=== PATIENT | male | born 1975 ===

== ENCOUNTER 2017-06-02 03:03 | Inpatient (IN) ==
--- NOTE | 2017-06-02 03:38 | Emergency Department Note ---
Arrival - Arrival Chief Complaint: Extremity Problem Stated Complaint: Ext Problem ED Nursing Triage Note: Patient to ED via EMS being transferred from [facility] ED for further evaluation for osteomylitits, diabetic ulcer, and multiple foot fx to right foot. Patient reports the ulcer to his right plantar foot has been present since December but the increased pain and swelling has been going on for " 2 months" Patient states he thought it would get better on his own so he did not seek tx. Patient reports no PMH but [facility] ED told patient he was diabetic while he was under their care tonight. Mode of Arrival: Stretcher Time Seen by Provider: 06/02/17 03:35 - History of Present Illness HPI Narrative: This is a 42-year-old male of [place] descent with a history of diabetes and osteomyelitis of the right foot first diagnosed 2 months ago who was seen at another hospital where an x-ray of the right foot reveal hypodensities suggesting osteomyelitis with displaced fractures and erosions for which he was treated with intravenous vancomycin and ertapenem and transferred to the emergency department for admission and possible surgical intervention. The patient denies any fever nor chills. Allergies/Adverse Reactions: Allergies Allergy/AdvReac Type Severity Reaction Status Date / Time No Known Allergies Allergy Unverified 06/02/17 03:20 Home Medications: Home Medications Medication Instructions Recorded Confirmed Type No Known Home Medications [No 06/02/17 06/02/17 History Known Home Medications] Review of System - Review of System Constitutional: Absent: fever, night sweats, weakness Eyes: Absent: vision change Head/Ears/Nose/Throat: Absent: epistaxis, nasal drainage Respiratory: Absent: respiratory distress Cardiovascular: Absent: dyspnea on exertion, orthopnea Gastrointestinal: Absent: diarrhea, constipation Genitourinary female: Absent: dysuria, urgency Musculoskeletal: Absent: lower back pain, neck pain Skin: Absent: change in color, change in hair/nails Neurological: Absent: numbness, paresthesias Psychiatric: Absent: anxiety, depression Endocrine: Absent: heat intolerance, polydipsia Hematological/Lymphatic: Absent: easy bruising, lymphadenopathy Allergic/Immunologic: Absent: urticaria Medical,Surgical,& Family Hx - Medical History Endocrine: History of: Diabetes Mellitus (NIDDM) - Social History Smoking Status: Never smoker Frequency of Alcohol Use: None Type of Drug Use: None Exam Vital Signs: Vital Signs Temperature 99.6 F 06/02/17 03:13 Pulse Rate 94 H 06/02/17 03:13 Respiratory Rate 18 06/02/17 03:13 Blood Pressure 148/84 06/02/17 03:13 O2 Sat by Pulse Oximetry 97 06/02/17 03:13 - Head Head exam: Present: atraumatic, normocephalic - Eye Eye exam: Present: PERRL, EOMI - ENT ENT exam: Present: normal exam, normal oropharynx, mucous membranes dry - Neck Neck exam: Present: normal inspection, full ROM - Chest Chest inspection: Present: normal inspection - Respiratory Respiratory exam: Present: normal lung sounds bilaterally - Cardiovascular Cardiovascular exam: Present: regular rate, normal rhythm - Abdominal Exam Abdominal exam: Present: soft, normal bowel sounds - Extremities Exam Extremities exam: Present: other (The right foot has an ulceration on the plantar surface with warmth swelling and erythema) - Back Exam Back exam: Present: normal inspection, full ROM - Neurological Exam Neurological exam: Present: alert, oriented X3 - Psychiatric Psychiatric exam: Present: normal affect, normal mood - Skin Skin exam: Present: warm, dry
--- NOTE | 2017-06-02 04:13 | Hospitalist History & Physical ---
Assessment and Plan (1) Cellulitis Status: Acute Current Visit: Yes (2) Diabetic foot wound Status: Acute Current Visit: Yes (3) Osteomyelitis Status: Acute Current Visit: Yes (4) Diabetes Status: Acute Current Visit: Yes (5) Pathological fracture of foot Status: Acute Assessment and plan: Our plan for this patient will be admitting him to our service. Labs are being repeated in the emergency room. He was hyponatremic at the outside facility. We will need to monitor his sugar. Would like to check an A1c. Will consult surgery for their evaluation and institute broad coverage antibiotics. Patient might need an orthopedic evaluation and input from infectious disease. Patient most likely will need extended antibiotic Patient's already been given ertapenem and vancomycin. I will continue vancomycin but add additional antibiotics for better pseudomonal coverage. Current Visit: Yes History of Present Illness Chief complaint: Foot pain History of present illness: Ms. Suazo is a 42 year old female with no known past medical history presents with 2 month history of pain in his right foot. Patient says that he works at the [employer] and walks around a lot. He first noticed that he started having leg cramps about 2 months ago. He started noticing again that the over the past month he had increased swelling and pain. He has had a chronic wound on the bottom part of his foot 5 months. Since he wasn't get in better and seem like the pain was getting worse he went to [facility]. At [facility] he had an x-ray and labs drawn. This noted that patient had elevated glucose. He had no previous diagnosis of diabetes but was found to have a elevated glucose. Patient sent over here for further evaluation. Patient had a x-ray at [facility] that showed changes in his lateral middle and medial cuneiforms and in the second third and fourth metatarsal suggesting osteomyelitis. I was consulted to admit him Home Medications Medication Instructions Recorded Confirmed Type No Known Home Medications [No 06/02/17 06/02/17 History Known Home Medications] Allergies Allergy/AdvReac Type Severity Reaction Status Date / Time No Known Allergies Allergy Unverified 06/02/17 03:20 Medical,Surgical,& Family Hx - Medical History Endocrine: History of: Diabetes Mellitus (NIDDM) (Diagnosed tonight) - Surgical History Orthopedic Surgeries: Surgical HX of;: Orthopedic Surgery - Family History Family History: Reports;: Family Diabetes - Social History Smoking Status: Never smoker Frequency of Alcohol Use: None Type of Drug Use: None 12 point system: reviewed and no additional remarkable complaints except as stated Exam - Constitutional Vitals: Period Temp Pulse Resp BP Sys/Mcgee Pulse Ox Last 24 Hr 99.6 F-99.6 F 94-94 18-18 148-148/84-84 97 General appearance: normal weight - Head Head exam: Present: normal inspection - Eye Eye exam: Present: EOMI Pupils: Present: ANDREW - ENT ENT exam: Present: normal exam - Neck Neck exam: Present: normal inspection - Respiratory Respiratory exam: Present: clear to auscultation bilaterally - Cardiovascular Cardiovascular exam: Present: regular rate and rhythm - GI/Abdominal GI/Abdominal exam: Present: normal bowel sounds - Extremities Exam Extremities exam: Present: other (Patient's right foot is obviously swelling in is warm to touch with erythema present) - Back Exam Back exam: Present: normal inspection - Neurological Exam Neurological exam: Present: alert - Psychiatric Psychiatric exam: Present: normal affect, normal mood - Skin Skin exam: Present: normal color, erythema (On right foot) Results - Labs CBC & BMP: 06/02/17 03:55 Labs: Labs from [facility] displayed white count 11.4 hemoglobin 10.1 hematocrit 31.9 BUN 13 sodium 128 potassium 4.9 chloride 94 creatinine 1.0
[2017-06-02 04:21] LABS: Basophils # 0.1 10*3/uL (0.0-0.2); Basophils % 0.4 % (0.0-0.8); Eosinophils # 0.1 10*3/uL (0.0-0.87); Eosinophils % 0.5 % (0.00-10.9); Hematocrit 27.8 VOL% (35.7-47.0); Hemoglobin 9.2 GM/DL (12.0-16.0); Immature Granulocytes % 0.5 %; Immature Granulocytes Absolute 0.06 #; Lymphocytes # 2.2 10*3/uL (1.4-4.0); Lymphocytes % 16.6 % (21.3-54.2); Mean Corpuscular HGB Conc 33.1 GM/DL (32-36); Mean Corpuscular Hemoglobin 28 PG (27-34); Mean Corpuscular Volume 84.5 FL (87-102); Mean Platelet Volume 9.6 FL (9.6-12.0); Monocytes # 1.1 10*3/uL (0.11-0.8); Monocytes % 8.3 % (1.7-12.7); Neutrophils # 9.6 10*3/uL (1.4-7.4); Neutrophils % 73.7 % (38.7-73.9); Platelet Count 483 T/CUMM (130-400); Red Blood Count 3.29 MC/CUMM (3.8-5.5); Red Cell Distribution Width 13.7 % (9.3-17.3); White Blood Count 13.1 T/CUMM (4-12)
[2017-06-02] MEDS ORDERED: DEXTROSE 50% 25 GM/50 ML SYRINGE IV PRN (04:25)
[2017-06-02] MEDS ORDERED: ONDANSETRON 4 MG/2 ML VIAL IV PRN (04:25)
[2017-06-02] MEDS ORDERED: ACETAMINOPHEN 325 MG TABLET PO PRN (04:25)
[2017-06-02] MEDS ORDERED: GLUCAGON 1 MG VIAL IM PRN (04:25)
[2017-06-02] MEDS ORDERED: HYDROmorphone 2 MG/1 ML VIAL IV PRN (04:45)
[2017-06-02 05:00] LABS: Alanine Aminotransferase 10 U/L (13-56); Albumin 1.9 G/DL (3.4-5.0); Alkaline Phosphatase 78 U/L (45-117); Aspartate Amino Transferase 9 U/L (0-37); Bilirubin,Total < 0.39 MG/DL (0.2-1.0); Blood Urea Nitrogen 11 MG/DL (7-18); Glucose 169 MG/DL (74-106); Osmolality,Calculated 264.7 MOS/KG (273-304); Potassium 4.3 MMOL/L (3.5-5.1); Sodium 131 MMOL/L (136-145); Total Protein 7.6 G/DL (6.4-8.3)
[2017-06-02] MEDS: SODIUM CHLORIDE 0.9% 1,000 ML IV SCH ×2 (06:22→18:03)
[2017-06-02] MEDS: metroNIDAZOLE INJ 500 MG in PREMIX 1 EACH IV SCH ×2 (06:27→14:12)
--- NOTE | 2017-06-02 06:50 | XRay Report ---
XR tibia fibula RT Indication: Osteomyelitis. Right leg 2 views: Soft tissue swelling around the ankle is present. There is vascular calcinosis. Tibia and fibula are intact without fracture, dislocation or bony destruction. No periostitis. Impression: Soft tissue swelling the ankle. PROCEDURE INTERPRETED AT [facility] DEPARTMENT OF RADIOLOGY Final Report Signed by: Augustine Venegas M.D.
--- NOTE | 2017-06-02 06:50 | XRay Report ---
XR foot 3V RT Indication: Osteomyelitis. Right foot 3 views: Chronic fracture of the distal second metatarsal noted. Bony destruction at the base of the second, third and fourth metatarsals are present along the tarsometatarsal joint line. Bony destruction of the dorsal navicular noted as well, and probably cuboid. Soft tissue swelling encircles the foot. No acute fracture identified. Impression: Bony destruction as described consistent with acute osteomyelitis. Associated soft tissue swelling. PROCEDURE INTERPRETED AT [facility] DEPARTMENT OF RADIOLOGY Final Report Signed by: Augustine Venegas M.D.
[2017-06-02 07:31] LABS: Sedimentation Rate-Westergren 102 MM/HR (0-20)
[2017-06-02] MEDS: INSULIN REGULAR 100 UNIT/ML SUBCUT SCH ×4 (07:52→20:55)
[2017-06-02] MEDS ORDERED: CEFEPIME 2,000 MG in SODIUM CHLORIDE 0.9% 100 ML IV SCH ×2 (08:00→20:00)
[2017-06-02] MEDS: PANTOPRAZOLE 40 MG TABLET PO SCH (09:00)
[2017-06-02] MEDS ORDERED: ENOXAPARIN 40 MG/0.4 ML SYRINGE SUBCUT SCH (09:00)
[2017-06-02] MEDS: VANCOMYCIN INJ 1,250 MG in SODIUM CHLORIDE 0.9% 250 ML IV SCH ×2 (10:23→16:10)
--- NOTE | 2017-06-02 14:03 | General Surgery Consult Note ---
Assessment and Plan - Time spent with patient Time spent with patient: Greater than 30 minutes (1) Diabetic foot wound Status: Acute Current Visit: Yes (2) Osteomyelitis Status: Acute Assessment and plan: 42-year-old male with no previous medical history admitted by the hospitalist on 06/02/2017 with new onset of diabetes and a diabetic foot infection. Patient was found to have osteomyelitis with extensive bony destruction. Dr. Latif is planning on taking him to the operating room to clean out the ulcer on the plantar aspect of his foot and identify damage to tissues and bones while he is there. Will consult Dr. Toro from orthopedics to assist. Dr. Latif is trying to avoid a [id number] amputation. Continue antibiotics and pain control as already ordered. Dr. Latif has seen and examined patient and further recommendations to follow. Current Visit: Yes (3) Diabetes Status: Acute Current Visit: Yes History of Present Illness Chief complaint: Right foot pain History of present illness: Mr. Suazo is a 42 year old male with no previous medical history admitted by the hospitalist service on 06/02/2017 with a diabetic foot wound with cellulitis and osteomyelitis. Patient also has undiagnosed diabetes as well. Patient states his foot has been hurting him approximately 2 months and has had a wound on the bottom of his foot even longer that he has been using Neosporin on. He said is having increased pain and swelling in this area so went to the [facility]. Foot x-ray and labs were drawn where elevated glucose was fine. He was transferred to [facility] for further evaluation. He is afebrile and his vital signs are stable. His labs show a mildly elevated white count of 13.1, H&H 9/27, blood sugars in the high 100s, and elevated C-reactive protein. His foot x-ray showing chronic fracture of the distal second metatarsal, bony destruction at the base of the second, third , and fourth metatarsals present along the tarsometatarsal joint line. He also has bony destruction of the dorsal navicular as well as the cuboid. This bony destruction is consistent with acute osteomyelitis. His tib-fib x-ray shows no fractures or dislocations. Upon exam, patient's foot is edematous without cellulitis. He has a small wound on the plantar aspect near his second metatarsal head and this is tender to palpation. He also has tenderness along the dorsal aspect of the foot over the fourth and fifth metatarsals. Patient denies headache, dysphagia, chest pain, shortness of breath, abdominal pain, constipation/diarrhea, or left lower extremity edema. Dr. Latif has been consulted for evaluation. Home Medications Medication Instructions Recorded Confirmed Type No Known Home Medications [No 06/02/17 06/02/17 History Known Home Medications] Allergies Allergy/AdvReac Type Severity Reaction Status Date / Time No Known Allergies Allergy Unverified 06/02/17 03:20 Medical,Surgical,& Family Hx - Medical History Endocrine: History of: Diabetes Mellitus (NIDDM) (Diagnosed tonight) - Surgical History Orthopedic Surgeries: Surgical HX of;: Orthopedic Surgery (left knee) - Family History Family History: Reports;: Family Diabetes (mother), Family Stroke (father cva) - Social History Smoking Status: Never smoker Frequency of Alcohol Use: None Type of Drug Use: None Review of systems: A complete 10 system review of systems was obtained and pertinent positives and negatives per HPI Exam - Constitutional Vitals: Period Temp Pulse Resp BP Sys/Mcgee Pulse Ox Last 24 Hr 98.0 F-99.6 F 94-94 18-87 123-148/72-85 94-97 Exam: Constitutional System: No distress. No tremulousness. Head: Normocephalic, atraumatic. Ears, Nose and Throat System: No evidence of Otitis or Mastoiditis. No epistaxis or discharge. Poor dentition Eyes System: Pupils equal, round, and reactive. Extraocular muscles intact. Neck: Supple, without adenopathy, No jugular venous distention. No thyromegaly, neck mass, or prior surgery apparent. Respiratory System: Chest clear to auscultation. Cardiovascular System: Heart with regular rate and rhythm. No murmur. GI System: Abdomen soft, nontender. Normo active bowel sounds present. Musculoskeletal System: limbs with moderate pedal edema on the right foot and ankle. Nonpalpable distal pulses. Neurological System: No discernable sensory deficit. No aphasia Psychiatric System: Conversation is rational Quality Measures - VTE Contraindication to Pharmacological VTE Prophylaxis: High Risk of Bleeding Results - Labs CBC & BMP: 06/02/17 03:55 06/02/17 03:55 Lab Results: I have reviewed the past 24 hour labs - Diagnostic Findings Procedure: X-ray: report reviewed by me (Right foot x-ray shows bony destruction consistent with acute osteomyelitis and associated soft tissue swelling. Tib-fib x-ray just shows soft tissue swelling in the ankle.)
--- NOTE | 2017-06-02 15:26 | EKG Report ---
Stationary ECG Study [facility] Test Date: 06/02/2017 3:26:37 PM Pat Name: JUNG MCKEE Department: Room: 334 Gender: M Playground Director: LUNA : 1975 Requested by: Israel Gilmore Order Number: [id number] Reading MD: CANDI AGUAYO Intervals [place] Rate: 76 P: 26 CO: 133 QRS: 71 QRSD: 105 T: 30 QT: 385 QTc: 416 Interpretive Statements SINUS RHYTHM POSSIBLE INFERIOR MYOCARDIAL INFARCTION, PROBABLY OLD Electronically Signed On 06-02-17 18:13:59 CDT by CANDI AGUAYO [email or web address]
--- NOTE | 2017-06-02 15:51 | Hospitalist Progress Note ---
Assessment and Plan (1) Acute osteomyelitis Status: Acute Assessment and plan: Continue vancomycin and change cefepime to Zosyn, consult Dr. Lua, will need PICC line, blood cultures never drawn. Will order now Current Visit: Yes (2) Hyponatremia Status: Acute Assessment and plan: cont ns Current Visit: Yes (3) Anemia Status: Acute Assessment and plan: iron studies, cont protonix Current Visit: Yes (4) Uncontrolled diabetes mellitus Status: Acute Assessment and plan: ROME globin A1c 8.9, consult diabetic education, start metformin 500 mg p.o. twice daily Current Visit: Yes Hospitalist: Subjective Interval history: Nonhealing diabetic wound on the bottom of his foot. He had fluctuation and swelling on the top of his foot concerned about underlying abscess. Patient was n.p.o. but Dr. Latif decided to take him to the OR in the morning. Exam - Constitutional Vitals: Period Temp Pulse Resp BP Sys/Mcgee Pulse Ox Last 24 Hr 98.0 F-99.6 F 80-94 18-20 123-148/72-85 94-97 Exam: Heart Rate-[RRR] Lungs-[CTAB] GI-[+bs soft, NT] Ext-[swelling and warmth with fluctuance on top of his foot Skin open wound on bottom of foot] Neuro [Motor 5/5], [alert and oriented times 3] psych [normal mood and affect] General [no acute distress] Results - Labs CBC & BMP: 06/02/17 03:55 06/02/17 03:55 Lab Results: I have reviewed the past 24 hour labs Labs: Hemoglobin A1c is 8.9 - EKG EKG shows: sinus rhythm (Q waves in the inferior leads) - Diagnostic Findings Procedure: X-ray: report reviewed by me (Soft tissue swelling at the ankle with bony destruction at the base of the second third and fourth metatarsals consistent with acute osteomyelitis.) Quality Measures - VTE Contraindication to Pharmacological VTE Prophylaxis: High Risk of Bleeding
[2017-06-02 16:20] LABS: % Iron Saturation 12.1 % (18-50); Ferritin 658.4 ng/ml (26-388)
[2017-06-02] MEDS: metFORMIN 500 MG TABLET PO SCH (16:34)
[2017-06-02] MEDS: PIPERACILLIN/TAZOBACTAM 3,375 MG in SODIUM CHLORIDE 0.9% 100 ML IV SCH (18:33)
[2017-06-03] MEDS: VANCOMYCIN INJ 1,250 MG in SODIUM CHLORIDE 0.9% 250 ML IV SCH ×2 (00:53→09:21)
[2017-06-03] MEDS: PIPERACILLIN/TAZOBACTAM 3,375 MG in SODIUM CHLORIDE 0.9% 100 ML IV SCH ×2 (02:58→11:29)
[2017-06-03 05:12] LABS: Basophils # 0.1 10*3/uL (0.0-0.2); Basophils % 0.7 % (0.0-0.8); Eosinophils # 0.2 10*3/uL (0.0-0.87); Eosinophils % 2.1 % (0.00-10.9); Hematocrit 24.8 VOL% (42.0-52.0); Hemoglobin 8.2 GM/DL (14.0-18.0); Immature Granulocytes % 0.4 %; Immature Granulocytes Absolute 0.03 #; Lymphocytes % 26.5 % (21.2-54.2); Mean Corpuscular HGB Conc 33.1 GM/DL (32-36); Mean Corpuscular Hemoglobin 28 PG (27-34); Mean Corpuscular Volume 85.8 FL (87-102); Mean Platelet Volume 9.9 FL (9.6-12.0); Monocytes # 0.7 10*3/uL (0.11-0.8); Monocytes % 9.9 % (1.7-12.7); Neutrophils # 4.5 10*3/uL (1.4-7.4); Neutrophils % 60.4 % (38.7-73.9); Platelet Count 454 T/CUMM (130-400); Red Blood Count 2.89 MC/CUMM (3.8-5.5); Red Cell Distribution Width 13.9 % (9.3-17.3); White Blood Count 7.5 T/CUMM (4-12)
[2017-06-03 05:54] LABS: Alanine Aminotransferase < 9 U/L (16-61); Albumin 1.6 G/DL (3.4-5.0); Alkaline Phosphatase 52 U/L (45-117); Aspartate Amino Transferase 6 U/L (0-37); Blood Urea Nitrogen 7 MG/DL (7-18); Calcium 8.2 MG/DL (8.5-10.1); Glucose 95 MG/DL (74-106); Osmolality,Calculated 270.8 MOS/KG (273-304); Potassium 3.7 MMOL/L (3.5-5.1); Sodium 137 MMOL/L (136-145); Total Protein 7.4 G/DL (6.4-8.3)
[2017-06-03] MEDS: INSULIN REGULAR 100 UNIT/ML SUBCUT SCH ×4 (07:16→21:10)
[2017-06-03] MEDS: metFORMIN 500 MG TABLET PO SCH ×2 (07:26→16:08)
[2017-06-03] MEDS: PANTOPRAZOLE 40 MG TABLET PO SCH (08:06)
[2017-06-03] MEDS ORDERED: PROPOFOL 200 MG/20 ML VIAL IV ONE (10:49)
[2017-06-03] MEDS ORDERED: LIDOCAINE 1% 5 ML VIAL ONE (10:49)
--- NOTE | 2017-06-03 11:32 | Anesthesia Post-Op ---
Anesthesia Post OP - Post Ansesthetic Evaluation Patient seen in post op: Yes Resp: within normal limits CV: within normal limits Mental: within normal limits Temp: within normal limits [id number]-[id number]: within normal limits Nausea and Vomiting: within normal limits Pain: within normal limits
[2017-06-03] MEDS ORDERED: MIDAZOLAM 2 MG/2 ML VIAL ONE (11:33)
[2017-06-03] MEDS ORDERED: fentaNYL 100 MCG/2 ML VIAL ONE (11:33)
--- NOTE | 2017-06-03 12:05 | Orthopedic Consult Note ---
History of Present Illness Chief complaint: Right foot swelling History of present illness: Mr. Suazo is a 42 year old male who presents for uncontrolled, newly diagnosed diabetes. He has been complaining of right foot swelling and some mild pain. No associated injury. Is been bothering for several months. He also has a superficial ulcer under his second metatarsal head. This has been debrided by Dr. Wagner and he states that it was very superficial and did not communicate with deeper structures. The wound also did not appear to be infected. Mr. Suazo states that it has been bleeding occasionally. He denies fevers or chills. The patient denies smoking. 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 Exam foot this morning prior to surgery demonstrated no gross deformity. The patient is swollen particularly about his Lisfranc joint. No erythema. Dorsalis pedis and posterior tib pulse palpable. Capillary refill is <2 seconds. He has a hammertoe involving his second toe. Underneath his metatarsal head he has a very superficial ulceration about 4 mm. It appears to my examination superficial. X-rays foot demonstrate fragmentation of his Lisfranc joint with a metatarsal head fracture and associated callus formation consistent with Charcot arthropathy. Impression: Charcot arthropathy right foot. Not osteomyelitis. Plan: Since the ulcer is superficial and does not appear to be infected, the process undergoing and his midfoot is not osteomyelitis but Charcot arthropathy. Antibiotics may be stopped from my standpoint. He does not require long-term antibiotics. I have advised a cast boot to be worn 23-1/2 hours per day. The patient may remove the cast boot for hygiene and dressing changes only. Nonweightbearing right lower extremity. Physical therapy to gait training. Follow-up with me in the office in 10-14 days. Home Medications Medication Instructions Recorded Confirmed Type No Known Home Medications [No 06/02/17 06/02/17 History Known Home Medications] Allergies Allergy/AdvReac Type Severity Reaction Status Date / Time No Known Allergies Allergy Unverified 06/02/17 03:20 12 point system: reviewed and no additional remarkable complaints except as stated Medical,Surgical,& Family Hx - Medical History Neurology: No history of: Seizures Endocrine: History of: Diabetes Mellitus (NIDDM) (Diagnosed tonight) - Surgical History Orthopedic Surgeries: Surgical HX of;: Orthopedic Surgery (left knee) - Family History Family History: Reports;: Family Diabetes (mother), Family Stroke (father cva) - Social History Smoking Status: Never smoker Frequency of Alcohol Use: None Type of Drug Use: None Exam - Constitutional Vitals: Period Temp Pulse Resp BP Sys/Mcgee Pulse Ox Last 24 Hr 97.7 F-99.0 F 65-75 16-20 115-132/74-83 95-100 Results - Labs CBC & BMP: 06/03/17 04:04 06/03/17 04:04 Assessment and Plan (1) Charcot's arthropathy associated with type 2 diabetes mellitus Status: Acute Current Visit: Yes
--- NOTE | 2017-06-03 12:38 | Operative Note ---
Date of procedure: 06/03/17 Pre-op diagnosis: Plantar ulcer right foot Post-op diagnosis: same Procedure: Procedure performed: Excisional debridement of right foot plantar ulcer including nonviable skin and subcutaneous tissue. Post debridement measurement was 2 x 1.5 cm Procedure in detail: After informed consent was obtained, patient was taken operating suite lies upon the operating table. After monitored anesthesia was initiated the right foot was prepped and draped in usual sterile fashion. After procedural pause local anesthetic infiltrated in the skin and subcutaneous tissue around the ulcer. Next a curette was used to perform excisional debridement removing the nonviable skin and subcutaneous tissue. The ulcer did not appear to extend beyond the subcutaneous tissue. There did not appear to be any drainage purulence erythema or sign of infection. It did not appear to communicate with any deeper structure. There was minimal bleeding. Hemostasis was obtained with direct pressure. The wound was irrigated suctioned and packed. Sterile dressings applied. Patient was explained taken recovery room in stable condition. All lap and needle counts correct at the end of the case. Anesthesia: MAC, local Surgeon / Physician: Felix Latif Estimated blood loss: other (Less than 5 cc) Specimens: none sent Condition: stable Disposition: PACU Results - Labs CBC & BMP: 06/03/17 04:04 06/03/17 04:04 Discharge Plan - Discharge Medications No Action No Known Home Medications [No Known Home Medications] - Follow Up or Referral - Forms/Instructions
--- NOTE | 2017-06-03 15:03 | Hospitalist Progress Note ---
Assessment and Plan (1) Acute osteomyelitis Status: Deleted Assessment and plan: Continue vancomycin and Zosyn, consult Dr. Lua, will need PICC line, blood cultures pending. Will refer to [facility]. s/p debridement today by Dr. Latif Current Visit: Yes (2) Hyponatremia Status: Acute Assessment and plan: resolved with ns. HL IVF Current Visit: Yes (3) Anemia Status: Acute Assessment and plan: iron studies shows iron level 15 with a TIBC of 124 and a ferritin level 658 which is elevated due infection, cont protonix, hgb stable Current Visit: Yes (4) Uncontrolled diabetes mellitus Status: Acute Assessment and plan: Hgb A1c 8.9, cont metformin 500 mg po bid, bs better today Current Visit: Yes Hospitalist: Subjective Interval history: Patient will most likely D need IV antibiotics and wound care through [facility]. Patient is a known diabetic. Patient really needs an amputation due to poor blood flow to his foot however he does not want to amputate at this time and he was taken to the OR for debridement today by Dr. Latif. Exam - Constitutional Vitals: Period Temp Pulse Resp BP Sys/Mcgee Pulse Ox Last 24 Hr 97.7 F-99.0 F 65-75 16-20 115-135/74-84 95-100 Exam: Heart Rate-[RRR] Lungs-[CTAB] GI-[+bs soft, NT] Ext-[foot wrapped Skin foot wrapped Neuro [Motor 5/5], [alert and oriented times 3] psych [normal mood and affect] General [no acute distress] Results - Labs CBC & BMP: 06/03/17 04:04 06/03/17 04:04 Lab Results: I have reviewed the past 24 hour labs Quality Measures - VTE Contraindication to Pharmacological VTE Prophylaxis: High Risk of Bleeding Specialty Discharge - Follow Up or Referrals Follow up with: Walter Toro Jr., MD [Physician] - 06/17/17 8:30 am
--- NOTE | 2017-06-03 15:55 | Infectious Disease Consult ---
Assessment and Plan (1) Charcot's arthropathy associated with type 2 diabetes mellitus Status: Acute Assessment and plan: I reviewed Dr. Tipton's note and his evaluation essentially is that the patient has Charcot's arthropathy and that there is no infection, no osteomyelitis. Therefore antibiotics are not indicated. Antibiotics were already stopped and I will see the patient only if necessary in the future. Current Visit: Yes (2) Diabetes Status: Acute Current Visit: Yes (3) Diabetic foot wound Status: Acute Assessment and plan: Uninfected by Dr. Tipton. Current Visit: Yes (4) Uncontrolled diabetes mellitus Status: Acute Assessment and plan: Newly diagnosed Current Visit: Yes History of Present Illness Chief complaint: Suspected infection to right foot History of present illness: Mr. Suazo is a 42 year old male who developed a wound to his right foot about 3 months ago. He kept walking around in it and thought it would heal and it did improve. However he continued to have discomfort in his right foot and it got progressively more swollen. He went to the [facility] about 2 weeks ago and was diagnosed with diabetes. He previously had no known medical problems. Because of how the foot looked he was sent to our hospital for further evaluation, with the suspicion that there was foot infection possibly osteomyelitis. I am asked to advise her antibiotics. Patient has not had fever or other constitutional symptoms. Home Medications Medication Instructions Recorded Confirmed Type No Known Home Medications [No 06/02/17 06/02/17 History Known Home Medications] Allergies Allergy/AdvReac Type Severity Reaction Status Date / Time No Known Allergies Allergy Unverified 06/02/17 03:20 12 point system: reviewed and no additional remarkable complaints except as stated (Per HPI) Medical,Surgical,& Family Hx - Medical History Neurology: No history of: Seizures Endocrine: History of: Diabetes Mellitus (NIDDM) (Diagnosed tonight) - Surgical History Orthopedic Surgeries: Surgical HX of;: Orthopedic Surgery (left knee) - Family History Family History: Reports;: Family Diabetes (mother), Family Stroke (father cva) - Social History Smoking Status: Never smoker Frequency of Alcohol Use: None Type of Drug Use: None Infectious Disease Exam H&P - Constitutional Vitals: Vital Signs Temp Pulse Resp BP Pulse Ox 99.0 F 66 16 135/84 98 06/03/17 12:05 06/03/17 12:05 06/03/17 12:05 06/03/17 12:05 06/03/17 12:05 Intake and Output 06/02/17 06/03/17 06/03/17 23:59 07:59 15:59 Intake Total 690 / 690 350 / 350 610 / 610 Output Total 650 / 650 800 / 800 Balance 690 / 690 -300 / -300 -190 / -190 Intake: IV 450 / 450 350 / 350 250 / 250 Zosyn 3,375 mg In Ns 100 100 / 100 100 / 100 ml @ 25 mls/hr IV Q8H ROSA Rx#:[id number] Vancomycin Inj 1,000 mg 250 / 250 250 / 250 250 / 250 In Ns 250 ml @ 250 mls/hr IV Q8H ROSA Rx#: [id number] Flagyl Inj 500 mg In 100 / 100 Premix 1 Each @ 100 mls/ hr IV Q8H ROSA Rx#: [id number] Oral 240 / 240 360 / 360 Output: Urine 650 / 650 800 / 800 Other: Voiding Method Urinal Urinal # Voids 2 # Bowel Movements 0 Exam: General: Patient relatively comfortable HEENT: Mucous membranes pink and moist, anicteric acyanotic, ANDREW, no oropharyngeal exudates, poor dentition Neck: Supple, no thyroid gland enlargement Respiratory system: Breath sounds vesicular, no crepitations or wheezes Cardiovascular: Normal S1 and S2, no murmurs appreciated Abdomen: Normal bowel sounds, soft nontender throughout, no organomegaly or mass Genitourinary: No suprapubic pain or bladder distention Extremities: Right foot bandaged Skin: No rash Reports - Labs CBC & BMP: 06/03/17 04:04 06/03/17 04:04 Labs: Laboratory Results - last 24 hr 06/02/17 06/02/17 06/02/17 03:55 16:42 20:15 WBC RBC Hgb Hct MCV MCH MCHC RDW Plt Count MPV Neut % (Auto) Lymph % (Auto) [place] % (Auto) Eos % (Auto) Baso % (Auto) Neut # (Auto) Lymph # (Auto) [place] # (Auto) Eos # (Auto) Baso # (Auto) Immature Gran % Nucleated RBC % Immature Gran # Nucleated RBCs # Immature Plt Fraction Sodium Potassium Chloride Carbon Dioxide Anion Gap BUN Creatinine GFR Calculation BUN/Creatinine Ratio Glucose POC Glucose 112 H 169 H Calculated Osmolality Calcium Iron 15 L TIBC 124 L % Saturation 12.1 L Ferritin 658.4 H Total Bilirubin AST ALT Alkaline Phosphatase Total Protein Albumin Globulin Albumin/Globulin Ratio Vancomycin Trough 06/03/17 06/03/17 06/03/17 04:04 04:04 06:50 WBC 7.5 D RBC 2.89 L Hgb 8.2 L Hct 24.8 L MCV 85.8 L MCH 28 MCHC 33.1 RDW 13.9 Plt Count 454 H MPV 9.9 Neut % (Auto) 60.4 Lymph % (Auto) 26.5 Russell % (Auto) 9.9 Eos % (Auto) 2.1 Baso % (Auto) 0.7 Neut # (Auto) 4.5 Lymph # (Auto) 2.0 Russell # (Auto) 0.7 Eos # (Auto) 0.2 Baso # (Auto) 0.1 Immature Gran % 0.4 Nucleated RBC % 0.0 Immature Gran # 0.03 Nucleated RBCs # 0.00 Immature Plt Fraction 0.0 Sodium 137 Potassium 3.7 Chloride 105 Carbon Dioxide 25 Anion Gap 10.7 BUN 7 Creatinine 0.60 L GFR Calculation 136 BUN/Creatinine Ratio 11.00 Glucose 95 POC Glucose 121 H Calculated Osmolality 270.8 L Calcium 8.2 L Iron TIBC % Saturation Ferritin Total Bilirubin 0.40 AST 6 ALT < 9 L Alkaline Phosphatase 52 Total Protein 7.4 Albumin 1.6 L Globulin 5.8 H Albumin/Globulin Ratio 0.2 L Vancomycin Trough 06/03/17 06/03/17 08:34 12:11 WBC RBC Hgb Hct MCV MCH MCHC RDW Plt Count MPV Neut % (Auto) Lymph % (Auto) [place] % (Auto) Eos % (Auto) Baso % (Auto) Neut # (Auto) Lymph # (Auto) Russell # (Auto) Eos # (Auto) Baso # (Auto) Immature Gran % Nucleated RBC % Immature Gran # Nucleated RBCs # Immature Plt Fraction Sodium Potassium Chloride Carbon Dioxide Anion Gap BUN Creatinine GFR Calculation BUN/Creatinine Ratio Glucose POC Glucose 112 H Calculated Osmolality Calcium Iron TIBC % Saturation Ferritin Total Bilirubin AST ALT Alkaline Phosphatase Total Protein Albumin Globulin Albumin/Globulin Ratio Vancomycin Trough 19.1 - Diagnostic Findings Procedure: X-ray: report reviewed by me Specialty Discharge - Follow Up or Referrals Follow up with: Walter Toro Jr., MD [Physician] - 06/17/17 8:30 am
[2017-06-03] MEDS: SODIUM HYPOCHLORITE 0.25% IRRIG 473 ML BOTTLE TOP SCH (16:06)
[2017-06-03] MEDS: CHLORHEXIDINE 4% SOLN 118 ML BOTTLE TOP SCH (16:06)
[2017-06-04 06:07] LABS: Basophils % 0.6 % (0.0-0.8); Eosinophils # 0.2 10*3/uL (0.0-0.87); Eosinophils % 2.2 % (0.00-10.9); Hematocrit 27.3 VOL% (42.0-52.0); Hemoglobin 9.1 GM/DL (14.0-18.0); Immature Granulocytes % 0.4 %; Immature Granulocytes Absolute 0.03 #; Lymphocytes # 2.3 10*3/uL (1.4-4.0); Lymphocytes % 32.7 % (21.2-54.2); Mean Corpuscular HGB Conc 33.3 GM/DL (32-36); Mean Corpuscular Hemoglobin 28 PG (27-34); Mean Corpuscular Volume 85.3 FL (87-102); Mean Platelet Volume 9.9 FL (9.6-12.0); Monocytes # 0.6 10*3/uL (0.11-0.8); Monocytes % 8.7 % (1.7-12.7); Neutrophils # 3.8 10*3/uL (1.4-7.4); Neutrophils % 55.4 % (38.7-73.9); Platelet Count 526 T/CUMM (130-400); Red Cell Distribution Width 13.8 % (9.3-17.3); White Blood Count 6.9 T/CUMM (4-12)
--- NOTE | 2017-06-04 09:39 | Event Note ---
Postop day 1 debridement of right foot ulcer Patient is doing well without complaints. Dr. Toro has seen patient and he has Charcot's arthropathy. Boot has been ordered, nonweightbearing and PT for gait training with crutches. Afebrile, vital signs stable, labs okay Wound is clean with no signs of infection Assessment and plan--no need for antibiotics DC home when okay with Dr. Broderick [facility] versus [facility] for wound care, consult social work Follow-up in [address] Latif Discussed with Dr. Latif
[2017-06-04] MEDS: INSULIN REGULAR 100 UNIT/ML SUBCUT SCH (09:58)
[2017-06-04] MEDS: PANTOPRAZOLE 40 MG TABLET PO SCH (10:03)
[2017-06-04] MEDS: metFORMIN 500 MG TABLET PO SCH (10:03)
[2017-06-04] MEDS: SODIUM HYPOCHLORITE 0.25% IRRIG 473 ML BOTTLE TOP SCH (10:05)
[2017-06-04] MEDS: CHLORHEXIDINE 4% SOLN 118 ML BOTTLE TOP SCH (10:05)
--- NOTE | 2017-06-04 10:37 | Discharge Summary ---
Hospital Course - Hospital Course Hospital Course: 42-year-old [place] male with a history of diabetes who presents to the [facility] with complaints of pain in his right foot. Patient has a wound on his foot that is chronic and has not healed over the last 5 months. Patient was admitted for cellulitis and possible osteomyelitis. X-ray shows a pathological fracture. Dr. Latif in Dr. Toro with both consulted. Dr. Latif took him to the OR on June 03, 2017 and did an I&D if his right foot plantar ulcer cleaning out all nonviable tissue. Patient had no evidence of osteomyelitis and Dr. Latif feels that he has Charcot arthropathy. No more antibiotics are necessary just wound care and control of his blood sugars. Patient's blood sugars are better today. His hemoglobin A1c was 8.9 and I have started metformin 500 mg po bid. F/U Dr. Latif and Dr. Toro as scheduled and [facility] in two weeks, with daily visit to [facility] wound care center. - Time spent with patient Time with patient DS: Greater than 30 minutes (40 min) Diagnosis - Discharge Diagnosis (1) Acute osteomyelitis Status: Deleted (2) Hyponatremia Status: Acute (3) Anemia Status: Acute (4) Uncontrolled diabetes mellitus Status: Acute Specialty Discharge - Follow Up or Referrals Follow up with: Walter Toro Jr., MD [Physician] - 06/17/17 8:30 am Discharge Plan - Discharge Data Disposition: Disch To Home/Self Care Condition at Discharge: Stable Discharge Diet: diabetic diet Activity: other (wear special shoe with walking ) Hygiene: no restrictions, keep area(s) dry Contact your physician if you experience:: fever over 101 - Discharge Medications New Chlorhexidine 4% Soln [Hibiclens] 1 applic TOP DAILY #1 bottle HYDROcodone/ACETAMIN 7.5-325 [[place] 7.5-325] 1 tablet PO Q4H PRN #30 tablet PRN Reason: Pain Moderate (4-7) metFORMIN [Glucophage] 500 mg PO BID W/MEALS #60 tablet Sodium Hypochlorite 0.25% Irr [[place] 1/2 Strength 0.25% Soln] 1 applic TOP DAILY #1 bottle - Follow Up or Referral Follow Up: Walter Toro Jr., MD [Physician] - 06/17/17 8:30 am Felix Latif MD [Physician] - 2 Weeks [facility] [Provider Group] - 2 Weeks - Forms/Instructions Additional Discharge Instructions: Wound care center at [facility] daily. Exam - Constitutional Vitals: Period Temp Pulse Resp BP Sys/[place]ge[place] Pulse Ox Last 24 Hr 97.7 F-99.0 F 65-76 16-20 121-145/71-90 95-100 General appearance: normal weight, no acute distress - Respiratory Respiratory exam: Present: clear to auscultation bilaterally. Absent: rhonchi, wheezes - Cardiovascular Cardiovascular exam: Present: regular rate and rhythm. Absent: systolic murmur - GI/Abdominal GI/Abdominal exam: Present: normal bowel sounds, soft. Absent: tenderness - Neurological Exam Neurological exam: Present: alert, oriented X3 Discharge Results Procedures and tests throughout hospitalization: Pending Orders 06/02/17 16:28 Blood Culture Stat 06/05/17 04:00 CBC [Comp Blood Count Auto Diff] IN AM 06/06/17 04:00 CBC [Comp Blood Count Auto Diff] IN AM Labs on day of discharge: Labs from last 24 hours 06/04/17 06/04/17 06/03/17 07:19 05:15 19:45 WBC 6.9 RBC 3.20 L Hgb 9.1 L Hct 27.3 L MCV 85.3 L MCH 28 MCHC 33.3 RDW 13.8 Plt Count 526 H MPV 9.9 Neut % (Auto) 55.4 Lymph % (Auto) 32.7 [place] % (Auto) 8.7 Eos % (Auto) 2.2 Baso % (Auto) 0.6 Neut # (Auto) 3.8 Lymph # (Auto) 2.3 [place] # (Auto) 0.6 Eos # (Auto) 0.2 Baso # (Auto) 0.0 Immature Gran % 0.4 Nucleated RBC % 0.0 Immature Gran # 0.03 Nucleated RBCs # 0.00 Immature Plt Fraction 0.0 POC Glucose 139 H 192 H 06/03/17 06/03/17 16:36 12:11 WBC RBC Hgb Hct MCV MCH MCHC RDW Plt Count MPV Neut % (Auto) Lymph % (Auto) [place] % (Auto) Eos % (Auto) Baso % (Auto) Neut # (Auto) Lymph # (Auto) [place] # (Auto) Eos # (Auto) Baso # (Auto) Immature Gran % Nucleated RBC % Immature Gran # Nucleated RBCs # Immature Plt Fraction POC Glucose 162 H 112 H Preliminary micro results at discharge 06/02/17 16:28 Blood Culture - Preliminary Blood No growth at 1 day 06/02/17 16:28 Blood Culture - Preliminary Blood No growth at 1 day DS: Provider Date of admission: 06/02/17 04:25 Primary care physician: Morgan Johnston MD Attending physician on admission: Augustine Choudhary MD Consults: 06/02/17 04:34 Consult to Physician [CONS] Routine Comment: Diabetic foot wound Consulting Provider: Felix Latif Consulting Provider Notified: Yes When should Consulting Provider be notified: Now Consult to Specialist Group: Surgery When should Consulting Provider be notified: In am Person Notified: jose called Date Notified: 06/02/17 Time Notified: 08:52 06/02/17 04:43 Consult to Pharmacy [CONS] Routine Reason for Pharmacy Consult: Dose/Manage Vancomycin 06/02/17 06:29 Consult to Diabetes [place], Educator [CONS] Routine Reason for Sock Examiner: Diabetes Education Consult to Dietitian [CONS] Routine Reason for Dietitian: Other Consult Comment: new onset diabetes 06/02/17 12:02 Consult to Physician [CONS] Routine Comment: Consulting Provider: Walter Toro Jr. Consulting Provider Notified: Yes When should Consulting Provider be notified: Now Person Notified: roman called Date Notified: 06/02/17 Time Notified: 12:09 06/02/17 13:57 Consult to Anesthesiology [CONS] Routine Consulting Provider: Reason for Anesthesiology: Pre-op Clearance 06/02/17 15:59 Consult to [facility], Educator [CONS] Routine Reason for Sock Examiner: Diabetes Education 06/03/17 12:07 Consult to Physical Therapy [CONS] Routine Reason for Physical Therapy: Crutch Training Start Therapy: Today Consult Comment: sha glez 06/03/17 15:38 Consult to Case Mgmt/Social Srvs [CONS] Routine Reason for Case Mgmt/Social Srvs: Home Health Consult Comment: vs [facility] for daily wound care Discharging clinician: Kacy Broderick MD
[2017-06-04 11:09] VITALS: BP 136/77
== END 2017-06-04 13:15 | DRG 623 ==
LOC: N.ED 03:03 → SUATTDRO 04:25 → EDSEX 04:25 → N.EDINP 04:25 → N.3E 05:27
PROVIDERS: ADMIT Internal Medicine; ATTEND Internal Medicine

== ENCOUNTER 2022-02-12 17:13 | Inpatient (IN) ==
[2022-02-12 21:20] LABS: Basophils % 0.5 % (0.0-0.8); Eosinophils # 0.1 10*3/uL (0.0-0.87); Eosinophils % 1.7 % (0.00-10.9); Hematocrit 25.5 VOL% (42.0-52.0); Hemoglobin 8.4 GM/DL (14.0-18.0); Immature Granulocytes % 0.3 %; Immature Granulocytes Absolute 0.02 #; Lymphocytes # 1.1 10*3/uL (1.4-4.0); Lymphocytes % 16.1 % (21.2-54.2); Mean Corpuscular HGB Conc 32.9 GM/DL (32-36); Mean Corpuscular Volume 96.6 FL (87-102); Mean Platelet Volume 11.1 FL (9.6-12.0); Monocytes # 0.5 10*3/uL (0.11-0.8); Monocytes % 8.1 % (1.7-12.7); Neutrophils % 73.3 % (38.7-73.9); Platelet Count 239 T/CUMM (130-400); Red Blood Count 2.64 MC/CUMM (3.8-5.5); Red Cell Distribution Width 14.7 % (9.3-17.3); White Blood Count 6.6 T/CUMM (4-12)
[2022-02-12 21:30] LABS: PT Patient Result 11.3 SECS (10.5-12.0); Partial Thromboplastin Time 32.5 SECS (23.8-32.1)
[2022-02-12] MEDS ORDERED: NICOTINE 21 MG/24 HR PATCH TRANSDERM PRN (21:34)
[2022-02-12] MEDS ORDERED: hydrALAZINE 20 MG/1 ML VIAL IV PRN (21:34)
[2022-02-12] MEDS ORDERED: diphenhydrAMINE CAP 25 MG CAPSULE PO PRN (21:34)
[2022-02-12] MEDS ORDERED: ZALEPLON 5 MG CAPSULE PO PRN (21:34)
[2022-02-12] MEDS ORDERED: ACETAMINOPHEN 325 MG TABLET PO PRN (21:34)
[2022-02-12] MEDS ORDERED: DEXTROSE 10% 250 ML BAG IV PRN (21:34)
[2022-02-12] MEDS ORDERED: ONDANSETRON 4 MG/2 ML VIAL IV PRN (21:34)
[2022-02-12] MEDS ORDERED: GLUCAGON 1 MG VIAL IM PRN (21:34)
[2022-02-12] MEDS ORDERED: guaiFENesin/DM ER 600-30 MG TABLET PO PRN (21:34)
[2022-02-12] MEDS ORDERED: MORPHINE 2 MG/1 ML SYRINGE IV PRN (21:34)
[2022-02-12] MEDS ORDERED: FUROSEMIDE 40 MG/4 ML VIAL IV ONE (21:39)
[2022-02-12 21:48] LABS: Calcium 7.2 MG/DL (8.5-10.1); Osmolality,Calculated 293.4 MOS/KG (273-304); Potassium 4.7 MMOL/L (3.5-5.1)
[2022-02-12] MEDS: HEPARIN 5,000 UNIT/1 ML VIAL SUBCUT SCH (22:05)
[2022-02-13] MEDS: ALBUTEROL/IPRATROPIUM 3 ML NEB RESP TX SCH ×4 (00:45→19:42)
[2022-02-13 04:46] LABS: Basophils % 0.6 % (0.0-0.8); Eosinophils # 0.1 10*3/uL (0.0-0.87); Eosinophils % 1.4 % (0.00-10.9); Hematocrit 24.7 VOL% (42.0-52.0); Immature Granulocytes % 0.4 %; Immature Granulocytes Absolute 0.03 #; Lymphocytes # 1.2 10*3/uL (1.4-4.0); Mean Corpuscular HGB Conc 32.4 GM/DL (32-36); Mean Corpuscular Volume 98.4 FL (87-102); Monocytes # 0.6 10*3/uL (0.11-0.8); Monocytes % 8.5 % (1.7-12.7); Neutrophils % 72.1 % (38.7-73.9); Platelet Count 219 T/CUMM (130-400); Red Blood Count 2.51 MC/CUMM (3.8-5.5); Red Cell Distribution Width 14.7 % (9.3-17.3); White Blood Count 7.2 T/CUMM (4-12)
[2022-02-13 05:02] LABS: Calcium 7.6 MG/DL (8.5-10.1); Osmolality,Calculated 292.4 MOS/KG (273-304); Potassium 4.7 MMOL/L (3.5-5.1)
[2022-02-13] MEDS: HEPARIN 5,000 UNIT/1 ML VIAL SUBCUT SCH ×2 (10:40→20:15)
[2022-02-13] MEDS: PANTOPRAZOLE 40 MG TABLET PO SCH (10:40)
[2022-02-13] MEDS: BISACODYL 5 MG TABLET PO SCH (10:40)
[2022-02-13] MEDS: FUROSEMIDE 40 MG/4 ML VIAL IV SCH ×2 (16:43→20:19)
[2022-02-13 17:05] LABS: Bacteria,Urine Few /HPF (Few); Glucose,Urine (UA) 250 mg/dL (Negative); Mucus,Urine Occasional /LPF (Occasional); Protein,Urine >=300 mg/dL (Negative); RBC,Urine 52 /HPF (0-4); Urine Appearance Clear (Clear); Urine Color Yellow (Yellow); Urine pH 6.5 (4.5-8.0)
[2022-02-13 17:06] LABS: Bilirubin,Urine Negative (Negative); Blood, Urine Moderate mg/dL (Negative); Ketones,Urine Negative (Negative); Nitrite,Urine Negative (Negative); Urine Urobilinogen 0.2 eU/dL (<2.0)
[2022-02-14] MEDS: ALBUTEROL/IPRATROPIUM 3 ML NEB RESP TX SCH ×4 (00:03→19:03)
[2022-02-14 05:10] LABS: Basophils % 0.5 % (0.0-0.8); Eosinophils # 0.1 10*3/uL (0.0-0.87); Eosinophils % 1.4 % (0.00-10.9); Hematocrit 23.6 VOL% (42.0-52.0); Hemoglobin 7.3 GM/DL (14.0-18.0); Immature Granulocytes % 0.4 %; Immature Granulocytes Absolute 0.03 #; Lymphocytes # 1.5 10*3/uL (1.4-4.0); Lymphocytes % 18.8 % (21.2-54.2); Mean Corpuscular HGB Conc 30.9 GM/DL (32-36); Monocytes # 0.7 10*3/uL (0.11-0.8); Neutrophils % 69.9 % (38.7-73.9); Platelet Count 212 T/CUMM (130-400); Red Blood Count 2.36 MC/CUMM (3.8-5.5); Red Cell Distribution Width 14.6 % (9.3-17.3); White Blood Count 8.1 T/CUMM (4-12)
[2022-02-14 05:20] LABS: Calcium 7.9 MG/DL (8.5-10.1); Osmolality,Calculated 285.8 MOS/KG (273-304); Potassium 4.7 MMOL/L (3.5-5.1)
[2022-02-14 05:22] LABS: Risk Ratio 2.41
[2022-02-14 05:23] LABS: % Iron Saturation 21.3 % (18-50); Ferritin 455.5 ng/mL (26-388)
[2022-02-14] MEDS ORDERED: PIPERACILLIN/TAZOBACTAM 2,250 MG in SODIUM CHLORIDE 0.9% 100 ML IV SCH (08:00)
[2022-02-14] MEDS: BISACODYL 5 MG TABLET PO SCH (09:36)
[2022-02-14] MEDS: PANTOPRAZOLE 40 MG TABLET PO SCH (09:37)
[2022-02-14] MEDS: FUROSEMIDE 40 MG/4 ML VIAL IV SCH ×3 (09:37→21:58)
[2022-02-14] MEDS: HEPARIN 5,000 UNIT/1 ML VIAL SUBCUT SCH ×2 (09:38→21:56)
[2022-02-14] MEDS: PIPERACILLIN/TAZOBACTAM 3,375 MG in SODIUM CHLORIDE 0.9% 100 ML IV SCH ×2 (09:55→17:37)
[2022-02-14] MEDS: hydrALAZINE 25 MG TABLET PO SCH ×3 (12:32→21:56)
[2022-02-15] MEDS: PIPERACILLIN/TAZOBACTAM 3,375 MG in SODIUM CHLORIDE 0.9% 100 ML IV SCH ×3 (00:07→17:48)
[2022-02-15] MEDS: ALBUTEROL/IPRATROPIUM 3 ML NEB RESP TX SCH ×4 (00:24→19:33)
[2022-02-15 04:53] LABS: Basophils % 0.5 % (0.0-0.8); Eosinophils # 0.2 10*3/uL (0.0-0.87); Hematocrit 24.9 VOL% (42.0-52.0); Hemoglobin 7.9 GM/DL (14.0-18.0); Immature Granulocytes % 0.3 %; Immature Granulocytes Absolute 0.02 #; Lymphocytes # 1.3 10*3/uL (1.4-4.0); Mean Corpuscular HGB Conc 31.7 GM/DL (32-36); Mean Corpuscular Volume 99.2 FL (87-102); Monocytes # 0.5 10*3/uL (0.11-0.8); Monocytes % 7.4 % (1.7-12.7); Neutrophils % 72.8 % (38.7-73.9); Platelet Count 225 T/CUMM (130-400); Red Blood Count 2.51 MC/CUMM (3.8-5.5); Red Cell Distribution Width 14.2 % (9.3-17.3); White Blood Count 7.3 T/CUMM (4-12)
[2022-02-15 05:10] LABS: Calcium 7.8 MG/DL (8.5-10.1); Osmolality,Calculated 287.8 MOS/KG (273-304); Potassium 4.9 MMOL/L (3.5-5.1)
[2022-02-15 07:15] LABS: Hepatitis B Core IgM Quant 0.08 Index; Hepatitis B Surface Ag Quant < 0.10 Index; Hepatitis B Surface Ag Result Non-Reactive (NonReactive); Hepatitis C Virus Ab Quant 0.18 Index; Hepatitis C Virus Ab Result Non-Reactive (NonReactive)
[2022-02-15] MEDS: BISACODYL 5 MG TABLET PO SCH (10:03)
[2022-02-15] MEDS: hydrALAZINE 25 MG TABLET PO SCH ×3 (10:04→22:02)
[2022-02-15] MEDS: PANTOPRAZOLE 40 MG TABLET PO SCH (10:04)
[2022-02-15] MEDS: FUROSEMIDE 40 MG/4 ML VIAL IV SCH ×3 (10:07→22:02)
[2022-02-15] MEDS: HEPARIN 5,000 UNIT/1 ML VIAL SUBCUT SCH ×2 (10:12→22:02)
[2022-02-15] MEDS: carvediloL 6.25 MG TABLET PO SCH ×2 (13:14→22:02)
[2022-02-15 14:12] LABS: RBC,Urine 114 /HPF (0-4)
[2022-02-15 14:16] LABS: Glucose,Urine (UA) 100 mg/dL (Negative); Ketones,Urine Negative (Negative); Nitrite,Urine Negative (Negative); Protein,Urine >=300 mg/dL (Negative); Urine Appearance Clear (Clear); Urine Color Yellow (Yellow)
[2022-02-15 14:17] LABS: Bilirubin,Urine Negative (Negative); Blood, Urine Moderate mg/dL (Negative); Urine Urobilinogen 0.2 eU/dL (<2.0)
[2022-02-15] MEDS: LACOSAMIDE 50 MG TABLET PO SCH (22:02)
[2022-02-16] MEDS: ALBUTEROL/IPRATROPIUM 3 ML NEB RESP TX SCH ×4 (00:27→20:38)
[2022-02-16] MEDS: PIPERACILLIN/TAZOBACTAM 3,375 MG in SODIUM CHLORIDE 0.9% 100 ML IV SCH ×3 (02:30→17:05)
[2022-02-16 05:38] LABS: Basophils % 0.6 % (0.0-0.8); Eosinophils # 0.2 10*3/uL (0.0-0.87); Eosinophils % 3.4 % (0.00-10.9); Hematocrit 22.8 VOL% (42.0-52.0); Hemoglobin 7.2 GM/DL (14.0-18.0); Immature Granulocytes % 0.3 %; Immature Granulocytes Absolute 0.02 #; Lymphocytes # 1.1 10*3/uL (1.4-4.0); Lymphocytes % 17.3 % (21.2-54.2); Mean Corpuscular HGB Conc 31.6 GM/DL (32-36); Mean Corpuscular Volume 98.3 FL (87-102); Monocytes # 0.6 10*3/uL (0.11-0.8); Monocytes % 9.2 % (1.7-12.7); Neutrophils % 69.2 % (38.7-73.9); Platelet Count 204 T/CUMM (130-400); Red Blood Count 2.32 MC/CUMM (3.8-5.5); Red Cell Distribution Width 14.2 % (9.3-17.3); White Blood Count 6.2 T/CUMM (4-12)
[2022-02-16 06:07] LABS: Osmolality,Calculated 288.7 MOS/KG (273-304); Potassium 4.8 MMOL/L (3.5-5.1)
[2022-02-16] MEDS: ATORVASTATIN 10 MG TABLET PO SCH (10:23)
[2022-02-16] MEDS: TAMSULOSIN 0.4 MG CAPSULE PO SCH (10:23)
[2022-02-16] MEDS: carvediloL 6.25 MG TABLET PO SCH ×2 (10:24→21:31)
[2022-02-16] MEDS: LACOSAMIDE 50 MG TABLET PO SCH ×2 (10:24→21:31)
[2022-02-16] MEDS: hydrALAZINE 25 MG TABLET PO SCH ×3 (10:24→21:31)
[2022-02-16] MEDS: HEPARIN 5,000 UNIT/1 ML VIAL SUBCUT SCH ×2 (10:25→21:32)
[2022-02-16] MEDS: PANTOPRAZOLE 40 MG TABLET PO SCH (10:25)
[2022-02-16] MEDS: BISACODYL 5 MG TABLET PO SCH (10:25)
[2022-02-16] MEDS: FUROSEMIDE 40 MG/4 ML VIAL IV SCH ×3 (10:27→21:31)
[2022-02-16] MEDS ORDERED: BENZONATATE 100 MG CAPSULE PO PRN (11:34)
[2022-02-17] MEDS: PIPERACILLIN/TAZOBACTAM 3,375 MG in SODIUM CHLORIDE 0.9% 100 ML IV SCH ×3 (00:20→17:46)
[2022-02-17] MEDS: ALBUTEROL/IPRATROPIUM 3 ML NEB RESP TX SCH ×4 (00:43→19:55)
[2022-02-17 05:36] LABS: Basophils % 0.8 % (0.0-0.8); Eosinophils # 0.2 10*3/uL (0.0-0.87); Eosinophils % 2.9 % (0.00-10.9); Hematocrit 24.4 VOL% (42.0-52.0); Hemoglobin 7.7 GM/DL (14.0-18.0); Lymphocytes % 19.3 % (21.2-54.2); Mean Corpuscular HGB Conc 31.6 GM/DL (32-36); Mean Platelet Volume 11.6 FL (9.6-12.0); Monocytes # 0.4 10*3/uL (0.11-0.8); Monocytes % 8.5 % (1.7-12.7); Neutrophils % 67.9 % (38.7-73.9); Platelet Count 232 T/CUMM (130-400); Red Blood Count 2.49 MC/CUMM (3.8-5.5); Red Cell Distribution Width 14.1 % (9.3-17.3); White Blood Count 5.2 T/CUMM (4-12)
[2022-02-17 05:54] LABS: Alanine Aminotransferase 15 U/L (16-61); Albumin 1.5 G/DL (3.4-5.0); Alkaline Phosphatase 57 U/L (45-117); Aspartate Amino Transferase 13 U/L (0-37); Bilirubin,Total < 0.39 MG/DL (0.20-1.00); Blood Urea Nitrogen 53 MG/DL (7-18); Calcium 7.5 MG/DL (8.5-10.1); Carbon Dioxide 28 MMOL/L (21-32); Chloride 105 MMOL/L (98-107); Estimated Glom Filtration Rate 22 ML/MIN; Glucose 91 MG/DL (74-106); Osmolality,Calculated 288.7 MOS/KG (273-304); Potassium 4.6 MMOL/L (3.5-5.1); Sodium 138 MMOL/L (136-145); Total Protein 5.9 G/DL (6.4-8.2)
[2022-02-17 05:55] LABS: Calcium 7.4 MG/DL (8.5-10.1); Osmolality,Calculated 288.7 MOS/KG (273-304); Potassium 4.6 MMOL/L (3.5-5.1)
[2022-02-17] MEDS: hydrALAZINE 25 MG TABLET PO SCH ×3 (09:17→21:02)
[2022-02-17] MEDS: LACOSAMIDE 50 MG TABLET PO SCH ×2 (09:17→21:02)
[2022-02-17] MEDS: ATORVASTATIN 10 MG TABLET PO SCH (09:18)
[2022-02-17] MEDS: BISACODYL 5 MG TABLET PO SCH (09:18)
[2022-02-17] MEDS: TAMSULOSIN 0.4 MG CAPSULE PO SCH (09:18)
[2022-02-17] MEDS: PANTOPRAZOLE 40 MG TABLET PO SCH (09:18)
[2022-02-17] MEDS: FUROSEMIDE 40 MG/4 ML VIAL IV SCH ×3 (09:22→21:03)
[2022-02-17] MEDS: HEPARIN 5,000 UNIT/1 ML VIAL SUBCUT SCH ×2 (09:23→21:03)
[2022-02-17] MEDS: carvediloL 6.25 MG TABLET PO SCH (12:13)
[2022-02-17] MEDS: carvediloL 12.5 MG TABLET PO SCH ×2 (12:54→17:12)
[2022-02-17 14:41] LABS: Antinuclear Ab, S 0.8 U
[2022-02-17] MEDS ORDERED: VANCOMYCIN INJ 1,000 MG in SODIUM CHLORIDE 0.9% 250 ML IV SCH (17:00)
[2022-02-17] MEDS ORDERED: VANCOMYCIN INJ 2,000 MG in SODIUM CHLORIDE 0.9% 500 ML IV ONE (18:00)
[2022-02-18] MEDS: PIPERACILLIN/TAZOBACTAM 3,375 MG in SODIUM CHLORIDE 0.9% 100 ML IV SCH ×2 (02:27→09:52)
[2022-02-18 04:56] LABS: Basophils % 0.8 % (0.0-0.8); Eosinophils # 0.2 10*3/uL (0.0-0.87); Eosinophils % 3.3 % (0.00-10.9); Hematocrit 26.2 VOL% (42.0-52.0); Hemoglobin 8.3 GM/DL (14.0-18.0); Immature Granulocytes % 0.4 %; Immature Granulocytes Absolute 0.02 #; Lymphocytes % 20.9 % (21.2-54.2); Mean Corpuscular HGB Conc 31.7 GM/DL (32-36); Mean Corpuscular Volume 97.4 FL (87-102); Mean Platelet Volume 11.2 FL (9.6-12.0); Monocytes # 0.4 10*3/uL (0.11-0.8); Monocytes % 9.1 % (1.7-12.7); Neutrophils % 65.5 % (38.7-73.9); Platelet Count 231 T/CUMM (130-400); Red Blood Count 2.69 MC/CUMM (3.8-5.5); Red Cell Distribution Width 13.9 % (9.3-17.3); White Blood Count 4.8 T/CUMM (4-12)
[2022-02-18 05:23] LABS: Calcium 7.5 MG/DL (8.5-10.1); Osmolality,Calculated 286.7 MOS/KG (273-304); Potassium 4.4 MMOL/L (3.5-5.1)
[2022-02-18] MEDS: ALBUTEROL/IPRATROPIUM 3 ML NEB RESP TX SCH ×4 (07:05→19:09)
[2022-02-18] MEDS: metOLazone 2.5 MG TABLET PO SCH (09:46)
[2022-02-18] MEDS: BISACODYL 5 MG TABLET PO SCH (09:46)
[2022-02-18] MEDS: TAMSULOSIN 0.4 MG CAPSULE PO SCH (09:46)
[2022-02-18] MEDS: LACOSAMIDE 50 MG TABLET PO SCH ×2 (09:47→20:52)
[2022-02-18] MEDS: ATORVASTATIN 10 MG TABLET PO SCH (09:48)
[2022-02-18] MEDS: hydrALAZINE 25 MG TABLET PO SCH ×3 (09:49→20:52)
[2022-02-18] MEDS: PANTOPRAZOLE 40 MG TABLET PO SCH (09:49)
[2022-02-18] MEDS: carvediloL 12.5 MG TABLET PO SCH ×2 (09:49→16:40)
[2022-02-18] MEDS: FUROSEMIDE 40 MG/4 ML VIAL IV SCH ×3 (09:52→20:52)
[2022-02-18] MEDS: HEPARIN 5,000 UNIT/1 ML VIAL SUBCUT SCH ×2 (09:56→20:52)
[2022-02-18 12:21] LABS: Glomerular Basement Membrane A < 0.2 U; Myeloperoxidase Antibody < 0.2 U
[2022-02-18] MEDS ORDERED: VANCOMYCIN INJ 1,500 MG in SODIUM CHLORIDE 0.9% 500 ML IV PRN (12:39)
[2022-02-18 14:16] LABS: Phospholipase A2 Receptor IFA Negative (Negative); Phospholipase A2 Receptr ELISA < 2 RU/mL
[2022-02-18 19:44] LABS: Folate 17.3 NG/ML (5.38-24.0)
[2022-02-18] MEDS: traZODone 50 MG TABLET PO PRN (20:52)
[2022-02-19 05:34] LABS: Basophils % 0.6 % (0.0-0.8); Eosinophils # 0.1 10*3/uL (0.0-0.87); Eosinophils % 2.8 % (0.00-10.9); Hematocrit 25.6 VOL% (42.0-52.0); Hemoglobin 8.3 GM/DL (14.0-18.0); Immature Granulocytes % 0.4 %; Immature Granulocytes Absolute 0.02 #; Lymphocytes # 0.7 10*3/uL (1.4-4.0); Lymphocytes % 15.5 % (21.2-54.2); Mean Corpuscular HGB Conc 32.4 GM/DL (32-36); Mean Corpuscular Volume 95.9 FL (87-102); Mean Platelet Volume 11.3 FL (9.6-12.0); Monocytes # 0.5 10*3/uL (0.11-0.8); Monocytes % 10.9 % (1.7-12.7); Neutrophils % 69.8 % (38.7-73.9); Platelet Count 237 T/CUMM (130-400); Red Blood Count 2.67 MC/CUMM (3.8-5.5); Red Cell Distribution Width 13.5 % (9.3-17.3); White Blood Count 4.7 T/CUMM (4-12)
[2022-02-19 05:47] LABS: Calcium 7.5 MG/DL (8.5-10.1); Osmolality,Calculated 286.7 MOS/KG (273-304); Potassium 3.7 MMOL/L (3.5-5.1)
[2022-02-19] MEDS: ALBUTEROL/IPRATROPIUM 3 ML NEB RESP TX SCH ×4 (07:07→21:15)
[2022-02-19] MEDS: ATORVASTATIN 10 MG TABLET PO SCH (09:30)
[2022-02-19] MEDS: metOLazone 2.5 MG TABLET PO SCH (09:30)
[2022-02-19] MEDS: PANTOPRAZOLE 40 MG TABLET PO SCH (09:31)
[2022-02-19] MEDS: BISACODYL 5 MG TABLET PO SCH (09:32)
[2022-02-19] MEDS: carvediloL 12.5 MG TABLET PO SCH ×2 (09:32→17:30)
[2022-02-19] MEDS: TAMSULOSIN 0.4 MG CAPSULE PO SCH (09:32)
[2022-02-19] MEDS: HEPARIN 5,000 UNIT/1 ML VIAL SUBCUT SCH ×2 (09:35→19:50)
[2022-02-19] MEDS: LACOSAMIDE 50 MG TABLET PO SCH ×2 (09:36→19:50)
[2022-02-19] MEDS: FUROSEMIDE 40 MG/4 ML VIAL IV SCH ×3 (09:39→19:50)
[2022-02-19] MEDS ORDERED: DIAZEPAM 5 MG TABLET PO ONE (10:58)
[2022-02-19] MEDS: SODIUM CHLORIDE 0.45% 1,000 ML IV SCH (11:38)
[2022-02-19] MEDS ORDERED: VANCOMYCIN INJ 1,500 MG in SODIUM CHLORIDE 0.9% 500 ML IV ONE (12:00)
[2022-02-19] MEDS: traZODone 50 MG TABLET PO PRN (19:48)
[2022-02-20] MEDS: ALBUTEROL/IPRATROPIUM 3 ML NEB RESP TX SCH ×4 (01:05→19:38)
[2022-02-20 05:06] LABS: Eosinophils # 0.1 10*3/uL (0.0-0.87); Eosinophils % 2.8 % (0.00-10.9); Hematocrit 25.5 VOL% (42.0-52.0); Hemoglobin 8.5 GM/DL (14.0-18.0); Immature Granulocytes % 0.3 %; Immature Granulocytes Absolute 0.01 #; Lymphocytes # 0.7 10*3/uL (1.4-4.0); Lymphocytes % 18.4 % (21.2-54.2); Mean Corpuscular HGB Conc 33.3 GM/DL (32-36); Mean Corpuscular Volume 95.5 FL (87-102); Mean Platelet Volume 11.2 FL (9.6-12.0); Monocytes # 0.5 10*3/uL (0.11-0.8); Monocytes % 11.5 % (1.7-12.7); Platelet Count 246 T/CUMM (130-400); Red Blood Count 2.67 MC/CUMM (3.8-5.5); Red Cell Distribution Width 13.5 % (9.3-17.3); White Blood Count 3.9 T/CUMM (4-12)
[2022-02-20 05:21] LABS: Calcium 7.5 MG/DL (8.5-10.1); Osmolality,Calculated 286.7 MOS/KG (273-304); Potassium 3.5 MMOL/L (3.5-5.1)
[2022-02-20 06:53] LABS: Total Protein (Chem) 5.6 G/DL (6.4-8.3)
[2022-02-20] MEDS: BISACODYL 5 MG TABLET PO SCH (09:28)
[2022-02-20] MEDS: HEPARIN 5,000 UNIT/1 ML VIAL SUBCUT SCH ×2 (09:29→21:47)
[2022-02-20] MEDS: FUROSEMIDE 40 MG/4 ML VIAL IV SCH ×3 (09:30→21:48)
[2022-02-20] MEDS: carvediloL 12.5 MG TABLET PO SCH ×2 (09:30→17:11)
[2022-02-20] MEDS: TAMSULOSIN 0.4 MG CAPSULE PO SCH (09:30)
[2022-02-20] MEDS: metOLazone 2.5 MG TABLET PO SCH (09:30)
[2022-02-20] MEDS: LACOSAMIDE 50 MG TABLET PO SCH ×2 (09:31→21:48)
[2022-02-20] MEDS: ATORVASTATIN 10 MG TABLET PO SCH (09:31)
[2022-02-20] MEDS: PANTOPRAZOLE 40 MG TABLET PO SCH (09:31)
[2022-02-20 10:10] LABS: Albumin (SPE) Rel % 35.5 %; Alpha 1 (SPE) 0.2 G/DL (0.1-0.4); Alpha 1 (SPE) Rel % 3.6 %; Alpha 2 (SPE) 0.7 G/DL (0.4-1.0); Alpha 2 (SPE) Rel % 13.3 %; Beta (SPE) 0.9 G/DL (0.5-1.1); Beta (SPE) Rel % 15.5 %; Gamma (SPE) 1.8 G/DL (0.7-1.7); Gamma (SPE) Rel % 32.1 %
[2022-02-20] MEDS: SODIUM CHLORIDE 0.45% 1,000 ML IV SCH (11:23)
[2022-02-20 19:22] LABS: Total Protein 24 Hr Ur Result 7213 MG/24HR (0-149.1); Total Volume,Urine 3150 ML (400-2000)
[2022-02-21] MEDS: ALBUTEROL/IPRATROPIUM 3 ML NEB RESP TX SCH ×4 (00:20→19:37)
[2022-02-21 05:42] LABS: Basophils # 0.1 10*3/uL (0.0-0.2); Basophils % 1.2 % (0.0-0.8); Eosinophils # 0.1 10*3/uL (0.0-0.87); Eosinophils % 1.6 % (0.00-10.9); Hematocrit 26.9 VOL% (42.0-52.0); Hemoglobin 8.8 GM/DL (14.0-18.0); Immature Granulocytes % 0.2 %; Immature Granulocytes Absolute 0.01 #; Lymphocytes % 23.9 % (21.2-54.2); Mean Corpuscular HGB Conc 32.7 GM/DL (32-36); Mean Corpuscular Volume 95.4 FL (87-102); Mean Platelet Volume 11.3 FL (9.6-12.0); Monocytes # 0.4 10*3/uL (0.11-0.8); Monocytes % 10.2 % (1.7-12.7); Neutrophils % 62.9 % (38.7-73.9); Platelet Count 251 T/CUMM (130-400); Red Blood Count 2.82 MC/CUMM (3.8-5.5); Red Cell Distribution Width 13.7 % (9.3-17.3); White Blood Count 4.3 T/CUMM (4-12)
[2022-02-21 05:58] LABS: Calcium 7.8 MG/DL (8.5-10.1); Osmolality,Calculated 283.8 MOS/KG (273-304); Potassium 3.4 MMOL/L (3.5-5.1)
[2022-02-21] MEDS: HEPARIN 5,000 UNIT/1 ML VIAL SUBCUT SCH ×2 (09:24→22:57)
[2022-02-21] MEDS: FUROSEMIDE 40 MG/4 ML VIAL IV SCH ×3 (09:25→22:57)
[2022-02-21] MEDS: LACOSAMIDE 50 MG TABLET PO SCH ×2 (09:25→22:55)
[2022-02-21] MEDS: PANTOPRAZOLE 40 MG TABLET PO SCH (09:26)
[2022-02-21] MEDS: BISACODYL 5 MG TABLET PO SCH (09:26)
[2022-02-21] MEDS: TAMSULOSIN 0.4 MG CAPSULE PO SCH (09:26)
[2022-02-21] MEDS: carvediloL 12.5 MG TABLET PO SCH ×2 (09:26→16:21)
[2022-02-21] MEDS: metOLazone 2.5 MG TABLET PO SCH (09:26)
[2022-02-21] MEDS: ATORVASTATIN 10 MG TABLET PO SCH (09:26)
[2022-02-21 10:07] LABS: Albumin (UPE) Rel % 58.4 %; Alpha 1 (UPE) 454.4 MG/24H; Alpha 1 (UPE) Rel % 6.3 %; Alpha 2 (UPE) 490.4 MG/24H; Alpha 2 (UPE) Rel % 6.8 %; Beta (UPE) 562.6 MG/24H; Beta (UPE) Rel % 7.8 %; Gamma (UPE) Rel % 20.7 %
[2022-02-21] MEDS: SODIUM CHLORIDE 0.45% 1,000 ML IV SCH (12:05)
[2022-02-22] MEDS: ALBUTEROL/IPRATROPIUM 3 ML NEB RESP TX SCH ×4 (00:06→19:53)
[2022-02-22 06:01] LABS: Basophils # 0.1 10*3/uL (0.0-0.2); Eosinophils # 0.1 10*3/uL (0.0-0.87); Eosinophils % 1.1 % (0.00-10.9); Hematocrit 28.6 VOL% (42.0-52.0); Hemoglobin 9.2 GM/DL (14.0-18.0); Immature Granulocytes % 0.6 %; Immature Granulocytes Absolute 0.03 #; Lymphocytes # 1.1 10*3/uL (1.4-4.0); Lymphocytes % 21.3 % (21.2-54.2); Mean Corpuscular HGB Conc 32.2 GM/DL (32-36); Mean Corpuscular Volume 96.9 FL (87-102); Mean Platelet Volume 11.2 FL (9.6-12.0); Monocytes # 0.6 10*3/uL (0.11-0.8); Monocytes % 11.6 % (1.7-12.7); Neutrophils % 64.4 % (38.7-73.9); Platelet Count 245 T/CUMM (130-400); Red Blood Count 2.95 MC/CUMM (3.8-5.5); Red Cell Distribution Width 13.5 % (9.3-17.3); White Blood Count 5.3 T/CUMM (4-12)
[2022-02-22 06:17] LABS: Calcium 7.8 MG/DL (8.5-10.1); Potassium 3.4 MMOL/L (3.5-5.1)
[2022-02-22] MEDS: FUROSEMIDE 40 MG/4 ML VIAL IV SCH ×2 (09:26→16:42)
[2022-02-22] MEDS: ATORVASTATIN 10 MG TABLET PO SCH (09:26)
[2022-02-22] MEDS: HEPARIN 5,000 UNIT/1 ML VIAL SUBCUT SCH ×2 (09:26→20:35)
[2022-02-22] MEDS: metOLazone 2.5 MG TABLET PO SCH (09:26)
[2022-02-22] MEDS: carvediloL 25 MG TABLET PO SCH ×2 (09:27→17:36)
[2022-02-22] MEDS: TAMSULOSIN 0.4 MG CAPSULE PO SCH (09:27)
[2022-02-22] MEDS: LACOSAMIDE 50 MG TABLET PO SCH ×2 (09:27→20:34)
[2022-02-22] MEDS: PANTOPRAZOLE 40 MG TABLET PO SCH (09:27)
[2022-02-22] MEDS: BISACODYL 5 MG TABLET PO SCH (09:28)
[2022-02-23] MEDS: ALBUTEROL/IPRATROPIUM 3 ML NEB RESP TX SCH ×2 (01:44→06:53)
[2022-02-23 06:45] LABS: Basophils % 0.5 % (0.0-0.8); Eosinophils # 0.1 10*3/uL (0.0-0.87); Eosinophils % 1.7 % (0.00-10.9); Hemoglobin 9.3 GM/DL (14.0-18.0); Immature Granulocytes % 0.5 %; Immature Granulocytes Absolute 0.03 #; Lymphocytes % 17.8 % (21.2-54.2); Mean Corpuscular HGB Conc 33.2 GM/DL (32-36); Mean Corpuscular Volume 93.3 FL (87-102); Mean Platelet Volume 10.9 FL (9.6-12.0); Monocytes # 0.6 10*3/uL (0.11-0.8); Monocytes % 10.1 % (1.7-12.7); Neutrophils % 69.4 % (38.7-73.9); Platelet Count 253 T/CUMM (130-400); Red Cell Distribution Width 13.2 % (9.3-17.3); White Blood Count 5.9 T/CUMM (4-12)
[2022-02-23 07:10] LABS: Platelet Estimate Normal
[2022-02-23 07:15] LABS: Calcium 7.6 MG/DL (8.5-10.1); Osmolality,Calculated 276.4 MOS/KG (273-304); Potassium 3.3 MMOL/L (3.5-5.1)
[2022-02-23 08:17] VITALS: BP 142/73
[2022-02-23] MEDS ORDERED: POTASSIUM CHLORIDE 10 MEQ TABLET PO ONE (08:42)
[2022-02-23] MEDS: FUROSEMIDE 40 MG/4 ML VIAL IV SCH (09:32)
[2022-02-23] MEDS: TAMSULOSIN 0.4 MG CAPSULE PO SCH (09:33)
[2022-02-23] MEDS: HEPARIN 5,000 UNIT/1 ML VIAL SUBCUT SCH (09:33)
[2022-02-23] MEDS: PANTOPRAZOLE 40 MG TABLET PO SCH (09:33)
[2022-02-23] MEDS: LACOSAMIDE 50 MG TABLET PO SCH (09:33)
[2022-02-23] MEDS: ATORVASTATIN 10 MG TABLET PO SCH (09:33)
[2022-02-23] MEDS: carvediloL 25 MG TABLET PO SCH (09:34)
[2022-02-23] MEDS: BISACODYL 5 MG TABLET PO SCH (09:35)
[2022-02-23] MEDS: metOLazone 2.5 MG TABLET PO SCH (09:43)
== END 2022-02-23 11:31 | disposition home health service (06) | DRG 280 ==
LOC: SUATTDRO 19:58 → N.TELES 19:58
PROVIDERS: ADMIT Internal Medicine; ATTEND Internal Medicine

== ENCOUNTER 2022-11-06 18:11 | Inpatient (IN) ==
[2022-11-06 18:49] LABS: Basophils % 0.5 % (0.0-0.8); Eosinophils # 0.2 10*3/uL (0.0-0.87); Eosinophils % 2.1 % (0.00-10.9); Hematocrit 27.7 VOL% (42.0-52.0); Hemoglobin 8.6 GM/DL (14.0-18.0); Immature Granulocytes % 0.5 %; Immature Granulocytes Absolute 0.04 #; Lymphocytes # 0.6 10*3/uL (1.4-4.0); Lymphocytes % 7.1 % (21.2-54.2); Mean Corpuscular Volume 99.6 FL (87-102); Monocytes # 0.5 10*3/uL (0.11-0.8); Monocytes % 6.1 % (1.7-12.7); Neutrophils % 83.7 % (38.7-73.9); Platelet Count 250 T/CUMM (130-400); Red Blood Count 2.78 MC/CUMM (3.8-5.5); Red Cell Distribution Width 14.4 % (9.3-17.3); White Blood Count 7.7 T/CUMM (4-12)
[2022-11-06 18:57] LABS: INR 1.1; PT Patient Result 12.1 SECS (10.1-12.1); Partial Thromboplastin Time 32.8 SECS (23.7-32.9)
[2022-11-06] MEDS ORDERED: NITROGLYCERIN 2% OINT 1 INCH/GM PACK TOP STA (19:00)
[2022-11-06] MEDS ORDERED: FUROSEMIDE 100 MG/10 ML VIAL IV STA (19:00)
[2022-11-06] MEDS ORDERED: MORPHINE 2 MG/1 ML SYRINGE IV STA (19:00)
[2022-11-06] MEDS ORDERED: ONDANSETRON 4 MG/2 ML VIAL IV STA (19:00)
[2022-11-06 19:07] LABS: Alanine Aminotransferase 18 U/L (16-61); Albumin 2.4 G/DL (3.4-5.0); Alkaline Phosphatase 87 U/L (45-117); Aspartate Amino Transferase 22 U/L (0-37); Bilirubin,Total < 0.39 MG/DL (0.20-1.00); Blood Urea Nitrogen 80 MG/DL (7-18); Carbon Dioxide 20 MMOL/L (21-32); Chloride 109 MMOL/L (98-107); Glucose 127 MG/DL (74-106); Osmolality,Calculated 300.7 MOS/KG (273-304); Sodium 138 MMOL/L (136-145); Total Protein 6.8 G/DL (6.4-8.2)
[2022-11-06 19:14] LABS: Calcium 5.1 MG/DL (8.5-10.1)
[2022-11-06 19:15] LABS: Potassium 6.4 MMOL/L (3.5-5.1)
[2022-11-06] MEDS ORDERED: INSULIN REGULAR 10 UNIT, CALCIUM GLUCONATE 1,000 MG in DEXTROSE 10% 250 ML IV ONE (19:32)
[2022-11-06] MEDS ORDERED: hydrALAZINE 20 MG/1 ML VIAL IV PRN (20:02)
[2022-11-06] MEDS ORDERED: GLUCAGON 1 MG VIAL IM PRN (20:02)
[2022-11-06] MEDS ORDERED: ONDANSETRON 4 MG/2 ML VIAL IV PRN (20:02)
[2022-11-06] MEDS ORDERED: DEXTROSE 10% 250 ML BAG IV PRN (20:02)
[2022-11-06] MEDS ORDERED: MAGNESIUM SULF RIDER 2 GM/50 ML PREMIX IV ONE (20:12)
[2022-11-06] MEDS ORDERED: SODIUM ZIRCONIUM CYCLOSILICATE 10 GM PACK PO ONE (20:37)
[2022-11-06] MEDS ORDERED: SODIUM POLYSTYRENE SULFATE 15 GM/60 ML BOTTLE PO STA (20:37)
[2022-11-06] MEDS: INSULIN LISPRO 100 UNIT/ML SUBCUT SCH (21:54)
[2022-11-06] MEDS ORDERED: CALCIUM GLUCONATE RIDER 1,000 MG/50 ML PREMIX IV ONE (23:00)
[2022-11-06 23:46] LABS: Mucus,Urine Occasional /LPF (Occasional); RBC,Urine 5 /HPF (0-4); Squamous Epithelial Cell,Urine Occasional /HPF (0-10)
[2022-11-06 23:47] LABS: Bilirubin,Urine Negative (Negative); Blood, Urine Small mg/dL (Negative); Glucose,Urine (UA) Negative (Negative); Ketones,Urine Negative (Negative); Nitrite,Urine Negative (Negative); Protein,Urine >=300 mg/dL (Negative); Urine Appearance Clear (Clear); Urine Color Yellow (Yellow); Urine Urobilinogen 0.2 eU/dL (<2.0)
[2022-11-07] MEDS ORDERED: CALCIUM GLUCONATE RIDER 1,000 MG/50 ML PREMIX IV ONE ×2 (00:45→07:15)
[2022-11-07 01:04] LABS: Basophils % 0.5 % (0.0-0.8); Eosinophils # 0.2 10*3/uL (0.0-0.87); Eosinophils % 2.3 % (0.00-10.9); Hematocrit 26.1 VOL% (42.0-52.0); Hemoglobin 8.1 GM/DL (14.0-18.0); Immature Granulocytes % 0.4 %; Immature Granulocytes Absolute 0.03 #; Lymphocytes # 0.5 10*3/uL (1.4-4.0); Lymphocytes % 6.6 % (21.2-54.2); Mean Corpuscular Volume 99.2 FL (87-102); Mean Platelet Volume 10.5 FL (9.6-12.0); Monocytes # 0.6 10*3/uL (0.11-0.8); Monocytes % 7.6 % (1.7-12.7); Neutrophils % 82.6 % (38.7-73.9); Platelet Count 250 T/CUMM (130-400); Red Blood Count 2.63 MC/CUMM (3.8-5.5); Red Cell Distribution Width 14.4 % (9.3-17.3); White Blood Count 8.2 T/CUMM (4-12)
[2022-11-07 01:25] LABS: Calcium 5.9 MG/DL (8.5-10.1); Osmolality,Calculated 299.7 MOS/KG (273-304); Potassium 5.8 MMOL/L (3.5-5.1)
[2022-11-07 01:36] LABS: Risk Ratio 1.85; Thyroid Stimulating Hormone 3.8 uIU/ml (0.358-3.74)
[2022-11-07] MEDS ORDERED: SODIUM POLYSTYRENE SULFATE 15 GM/60 ML BOTTLE RECTAL ONE (07:15)
[2022-11-07] MEDS ORDERED: FUROSEMIDE 40 MG/4 ML VIAL IV SCH (08:00)
[2022-11-07 08:03] LABS: Osmolality,Calculated 299.7 MOS/KG (273-304)
[2022-11-07 08:05] LABS: Calcium 5.5 MG/DL (8.5-10.1)
[2022-11-07 08:06] LABS: % Iron Saturation 19.5 % (18-50); Ferritin 384.5 ng/mL (26-388)
[2022-11-07] MEDS: INSULIN LISPRO 100 UNIT/ML SUBCUT SCH ×4 (08:34→20:43)
[2022-11-07] MEDS: FOLIC ACID 1 MG TABLET PO SCH (08:40)
[2022-11-07] MEDS: PANTOPRAZOLE 40 MG TABLET PO SCH (08:50)
[2022-11-07] MEDS ORDERED: metOLazone 2.5 MG TABLET PO SCH (09:00)
[2022-11-07] MEDS: SODIUM ZIRCONIUM CYCLOSILICATE 10 GM PACK PO SCH ×3 (12:12→20:42)
[2022-11-07 13:25] LABS: Parathyroid Hormone Intact 284.4 PG/ML (18.4-80.1)
[2022-11-07 13:29] LABS: 25 Hydroxy Vitamin D Total 16.1 NG/ML (30-100)
[2022-11-07 14:10] LABS: Osmolality,Calculated 298.8 MOS/KG (273-304); Potassium 5.9 MMOL/L (3.5-5.1)
[2022-11-07] MEDS: metOLazone 5 MG TABLET PO SCH (15:53)
[2022-11-07] MEDS: carvediloL 25 MG TABLET PO SCH (16:11)
[2022-11-07] MEDS: CALCIUM (CARBONATE) 500 MG TABLET PO SCH ×2 (16:11→20:42)
[2022-11-07] MEDS: FUROSEMIDE 40 MG/4 ML VIAL IV SCH (20:40)
[2022-11-07] MEDS: ATORVASTATIN 10 MG TABLET PO SCH (20:41)
[2022-11-07] MEDS: FERROUS SULFATE 325 MG TABLET PO SCH (20:41)
[2022-11-07] MEDS ORDERED: ENOXAPARIN 30 MG/0.3 ML SYRINGE SUBCUT SCH (21:00)
[2022-11-08 05:19] LABS: Basophils % 0.3 % (0.0-0.8); Eosinophils # 0.1 10*3/uL (0.0-0.87); Eosinophils % 1.8 % (0.00-10.9); Hematocrit 24.2 VOL% (42.0-52.0); Hemoglobin 7.5 GM/DL (14.0-18.0); Immature Granulocytes % 0.5 %; Immature Granulocytes Absolute 0.04 #; Lymphocytes # 0.6 10*3/uL (1.4-4.0); Lymphocytes % 8.3 % (21.2-54.2); Mean Corpuscular Volume 99.6 FL (87-102); Mean Platelet Volume 11.3 FL (9.6-12.0); Monocytes # 0.5 10*3/uL (0.11-0.8); Monocytes % 7.4 % (1.7-12.7); Neutrophils % 81.7 % (38.7-73.9); Platelet Count 206 T/CUMM (130-400); Red Blood Count 2.43 MC/CUMM (3.8-5.5); Red Cell Distribution Width 14.4 % (9.3-17.3); White Blood Count 7.3 T/CUMM (4-12)
[2022-11-08 05:36] LABS: Osmolality,Calculated 300.8 MOS/KG (273-304); Potassium 5.4 MMOL/L (3.5-5.1)
[2022-11-08 05:39] LABS: Calcium 5.6 MG/DL (8.5-10.1)
[2022-11-08 05:54] LABS: Calcium 5.5 MG/DL (8.5-10.1)
[2022-11-08] MEDS: INSULIN LISPRO 100 UNIT/ML SUBCUT SCH ×4 (07:52→21:13)
[2022-11-08] MEDS: carvediloL 25 MG TABLET PO SCH ×2 (09:51→16:15)
[2022-11-08] MEDS: PANTOPRAZOLE 40 MG TABLET PO SCH (09:51)
[2022-11-08] MEDS: FERROUS SULFATE 325 MG TABLET PO SCH ×2 (09:52→21:05)
[2022-11-08] MEDS: metOLazone 5 MG TABLET PO SCH (09:52)
[2022-11-08] MEDS: FOLIC ACID 1 MG TABLET PO SCH (09:52)
[2022-11-08] MEDS: CALCIUM (CARBONATE) 500 MG TABLET PO SCH ×4 (09:54→21:04)
[2022-11-08] MEDS: FUROSEMIDE 40 MG/4 ML VIAL IV SCH ×3 (10:38→21:14)
[2022-11-08] MEDS ORDERED: GLUCAGON 1 MG VIAL IM PRN (10:53)
[2022-11-08] MEDS ORDERED: DEXTROSE 50% 25 GM/50 ML VIAL IV PRN (10:53)
[2022-11-08] MEDS: SODIUM ZIRCONIUM CYCLOSILICATE 10 GM PACK PO SCH ×3 (14:20→21:05)
[2022-11-08] MEDS ORDERED: CALCIUM GLUCONATE RIDER 1,000 MG/50 ML PREMIX IV ONE (18:37)
[2022-11-08] MEDS ORDERED: SODIUM BICARBONATE 50 MEQ/50 ML VIAL IV ONE (19:07)
[2022-11-08 19:22] LABS: Alanine Aminotransferase 12 U/L (16-61); Albumin 1.9 G/DL (3.4-5.0); Alkaline Phosphatase 62 U/L (45-117); Aspartate Amino Transferase 10 U/L (0-37); Bilirubin,Total < 0.39 MG/DL (0.20-1.00); Blood Urea Nitrogen 83 MG/DL (7-18); Carbon Dioxide 18 MMOL/L (21-32); Chloride 105 MMOL/L (98-107); Glucose 153 MG/DL (74-106); Osmolality,Calculated 297.1 MOS/KG (273-304); Potassium 5.1 MMOL/L (3.5-5.1); Sodium 135 MMOL/L (136-145); Total Protein 5.6 G/DL (6.4-8.2)
[2022-11-08 19:26] LABS: Calcium 5.2 MG/DL (8.5-10.1)
[2022-11-08] MEDS ORDERED: FUROSEMIDE INJ 240 MG in SODIUM CHLORIDE 0.9% 50 ML IV ONE (19:30)
[2022-11-08 20:19] LABS: ABG Base Excess -8.3 MMOL/L (-2.5-2.5); ABG HCO3 17.7 MMOL/L (20-26); ABG Oxygen Saturation 99.4 % (95-100); ABG PCO2 43.2 MM HG (35-48); ABG PH 7.243 (7.35-7.45); ABG TCO2 17.5 MMOL/L (23-27)
[2022-11-08] MEDS: ATORVASTATIN 10 MG TABLET PO SCH (21:04)
[2022-11-09 04:24] LABS: Basophils % 0.2 % (0.0-0.8); Eosinophils % 0.2 % (0.00-10.9); Hematocrit 27.6 VOL% (42.0-52.0); Hemoglobin 8.5 GM/DL (14.0-18.0); Immature Granulocytes % 0.2 %; Immature Granulocytes Absolute 0.01 #; Lymphocytes # 0.4 10*3/uL (1.4-4.0); Mean Corpuscular HGB Conc 30.8 GM/DL (32-36); Mean Corpuscular Volume 100.4 FL (87-102); Mean Platelet Volume 11.5 FL (9.6-12.0); Monocytes # 0.3 10*3/uL (0.11-0.8); Monocytes % 4.5 % (1.7-12.7); Neutrophils % 87.9 % (38.7-73.9); Platelet Count 206 T/CUMM (130-400); Red Blood Count 2.75 MC/CUMM (3.8-5.5); Red Cell Distribution Width 14.2 % (9.3-17.3)
[2022-11-09 04:38] LABS: Potassium 4.9 MMOL/L (3.5-5.1)
[2022-11-09 04:41] LABS: Calcium 5.5 MG/DL (8.5-10.1)
[2022-11-09] MEDS ORDERED: CALCIUM GLUCONATE RIDER 1,000 MG/50 ML PREMIX IV ONE (05:00)
[2022-11-09] MEDS: INSULIN LISPRO 100 UNIT/ML SUBCUT SCH ×5 (07:42→23:58)
[2022-11-09] MEDS: carvediloL 25 MG TABLET PO SCH ×2 (08:01→16:04)
[2022-11-09] MEDS ORDERED: SODIUM BICARBONATE 50 MEQ/50 ML VIAL IV ONE ×2 (08:21→23:15)
[2022-11-09] MEDS: CHOLECALCIFEROL 5,000 UNIT TABLET PO SCH (08:32)
[2022-11-09] MEDS: metOLazone 5 MG TABLET PO SCH (08:33)
[2022-11-09] MEDS: FERROUS SULFATE 325 MG TABLET PO SCH ×2 (08:33→20:56)
[2022-11-09] MEDS: CALCIUM (CARBONATE) 500 MG TABLET PO SCH ×4 (08:33→20:56)
[2022-11-09] MEDS: FOLIC ACID 1 MG TABLET PO SCH (08:33)
[2022-11-09] MEDS: PANTOPRAZOLE 40 MG TABLET PO SCH (08:33)
[2022-11-09] MEDS: FUROSEMIDE 40 MG/4 ML VIAL IV SCH ×2 (08:34→16:01)
[2022-11-09 11:16] LABS: Hepatitis B Core IgM Quant 0.07 Index; Hepatitis B Surface Ag Quant < 0.10 Index; Hepatitis B Surface Ag Result Non-Reactive (NonReactive); Hepatitis C Virus Ab Quant 0.02 Index; Hepatitis C Virus Ab Result Non-Reactive (NonReactive)
[2022-11-09] MEDS ORDERED: MIDAZOLAM 2 MG/2 ML VIAL ONE (11:32)
[2022-11-09] MEDS ORDERED: MIDAZOLAM 2 MG/2 ML VIAL IV ONE ×2 (11:33→11:34)
[2022-11-09] MEDS ORDERED: HEPARIN 10,000 UNIT/10 ML VIAL IV PRN (15:35)
[2022-11-09] MEDS: ATORVASTATIN 10 MG TABLET PO SCH (20:56)
[2022-11-09 22:42] LABS: ABG Base Excess -8.4 MMOL/L (-2.5-2.5); ABG HCO3 17.6 MMOL/L (20-26); ABG Oxygen Saturation 99.1 % (95-100); ABG PCO2 53.2 MM HG (35-48)
[2022-11-09 22:44] LABS: ABG PH 7.183 (7.35-7.45)
[2022-11-09 22:55] LABS: Basophils % 0.1 % (0.0-0.8); Eosinophils % 0.1 % (0.00-10.9); Hematocrit 29.5 VOL% (42.0-52.0); Hemoglobin 9.4 GM/DL (14.0-18.0); Immature Granulocytes % 0.8 %; Lymphocytes # 1.3 10*3/uL (1.4-4.0); Lymphocytes % 10.6 % (21.2-54.2); Mean Corpuscular HGB Conc 31.9 GM/DL (32-36); Mean Corpuscular Volume 99.3 FL (87-102); Mean Platelet Volume 11.6 FL (9.6-12.0); Monocytes # 0.6 10*3/uL (0.11-0.8); Monocytes % 4.6 % (1.7-12.7); Neutrophils % 83.8 % (38.7-73.9); Platelet Count 209 T/CUMM (130-400); Red Blood Count 2.97 MC/CUMM (3.8-5.5); Red Cell Distribution Width 14.4 % (9.3-17.3)
[2022-11-09] MEDS: MIDAZOLAM DRIP 100 MG/100 ML PREMIX IV PRN (22:55)
[2022-11-09 23:02] LABS: Alanine Aminotransferase 14 U/L (16-61); Albumin 2.1 G/DL (3.4-5.0); Alkaline Phosphatase 68 U/L (45-117); Aspartate Amino Transferase 15 U/L (0-37); Bilirubin,Total < 0.39 MG/DL (0.20-1.00); Blood Urea Nitrogen 74 MG/DL (7-18); Calcium 8.4 MG/DL (8.5-10.1); Carbon Dioxide 21 MMOL/L (21-32); Chloride 104 MMOL/L (98-107); Glucose 150 MG/DL (74-106); Osmolality,Calculated 301.5 MOS/KG (273-304); Potassium 4.1 MMOL/L (3.5-5.1); Sodium 139 MMOL/L (136-145); Total Protein 6.1 G/DL (6.4-8.2)
[2022-11-09] MEDS ORDERED: NOREPINEPHRINE DRIP 8 MG/250 ML PREMIX IV PRN (23:08)
[2022-11-10 04:20] LABS: Basophils % 0.1 % (0.0-0.8); Hematocrit 26.8 VOL% (42.0-52.0); Hemoglobin 8.6 GM/DL (14.0-18.0); Immature Granulocytes % 0.4 %; Immature Granulocytes Absolute 0.04 #; Lymphocytes # 0.4 10*3/uL (1.4-4.0); Lymphocytes % 3.7 % (21.2-54.2); Mean Corpuscular HGB Conc 32.1 GM/DL (32-36); Mean Corpuscular Volume 98.2 FL (87-102); Mean Platelet Volume 11.6 FL (9.6-12.0); Monocytes # 0.6 10*3/uL (0.11-0.8); Monocytes % 6.3 % (1.7-12.7); Neutrophils % 89.5 % (38.7-73.9); Platelet Count 200 T/CUMM (130-400); Red Blood Count 2.73 MC/CUMM (3.8-5.5); Red Cell Distribution Width 14.4 % (9.3-17.3)
[2022-11-10 05:02] LABS: Lymphocytes 4 % (20-55); Total Cells Counted 100
[2022-11-10 05:03] LABS: Macrocytosis Slight; Platelet Estimate Normal
[2022-11-10 06:14] LABS: Alanine Aminotransferase 15 U/L (16-61); Albumin 2.1 G/DL (3.4-5.0); Alkaline Phosphatase 67 U/L (45-117); Aspartate Amino Transferase 15 U/L (0-37); Bilirubin,Total < 0.39 MG/DL (0.20-1.00); Blood Urea Nitrogen 74 MG/DL (7-18); Calcium 6.6 MG/DL (8.5-10.1); Carbon Dioxide 23 MMOL/L (21-32); Chloride 104 MMOL/L (98-107); Glucose 123 MG/DL (74-106); Osmolality,Calculated 297.7 MOS/KG (273-304); Phosphorous 8.9 MG/DL (2.5-4.9); Potassium 4.1 MMOL/L (3.5-5.1); Sodium 138 MMOL/L (136-145)
[2022-11-10] MEDS: INSULIN LISPRO 100 UNIT/ML SUBCUT SCH ×3 (06:35→17:28)
[2022-11-10 06:36] LABS: ABG Base Excess -4.2 MMOL/L (-2.5-2.5); ABG HCO3 20.9 MMOL/L (20-26); ABG Oxygen Saturation 98.8 % (95-100); ABG PCO2 48.7 MM HG (35-48); ABG PH 7.276 (7.35-7.45); ABG TCO2 21.3 MMOL/L (23-27)
[2022-11-10] MEDS: carvediloL 25 MG TABLET PO SCH ×2 (08:16→17:27)
[2022-11-10] MEDS: CALCIUM (CARBONATE) 500 MG TABLET PO SCH ×4 (09:02→20:55)
[2022-11-10] MEDS: PANTOPRAZOLE 40 MG VIAL IV SCH (09:02)
[2022-11-10] MEDS: CHOLECALCIFEROL 5,000 UNIT TABLET PO SCH (09:03)
[2022-11-10] MEDS: metOLazone 5 MG TABLET PO SCH (09:03)
[2022-11-10] MEDS: FOLIC ACID 1 MG TABLET PO SCH (09:03)
[2022-11-10] MEDS: FERROUS SULFATE 325 MG TABLET PO SCH ×2 (09:03→20:55)
[2022-11-10] MEDS ORDERED: CALCIUM GLUCONATE RIDER 1,000 MG/50 ML PREMIX IV ONE ×2 (10:13→14:00)
[2022-11-10] MEDS: LEVOTHYROXINE 100 MCG VIAL IV SCH (14:19)
[2022-11-10] MEDS: MIDAZOLAM DRIP 100 MG/100 ML PREMIX IV PRN (14:37)
[2022-11-10] MEDS: HYDROCORTISONE 100 MG VIAL IV SCH ×2 (14:57→20:56)
[2022-11-10] MEDS: ATORVASTATIN 10 MG TABLET PO SCH (20:55)
[2022-11-11] MEDS: INSULIN LISPRO 100 UNIT/ML SUBCUT SCH ×5 (00:09→23:21)
[2022-11-11] MEDS: HYDROCORTISONE 100 MG VIAL IV SCH ×3 (03:19→13:36)
[2022-11-11] MEDS: MORPHINE 2 MG/1 ML SYRINGE IV PRN ×2 (03:20→14:00)
[2022-11-11] MEDS: MIDAZOLAM DRIP 100 MG/100 ML PREMIX IV PRN ×2 (04:07→14:51)
[2022-11-11 05:05] LABS: Hematocrit 26.1 VOL% (42.0-52.0); Hemoglobin 8.1 GM/DL (14.0-18.0); Immature Granulocytes % 0.4 %; Immature Granulocytes Absolute 0.03 #; Lymphocytes # 0.3 10*3/uL (1.4-4.0); Lymphocytes % 3.9 % (21.2-54.2); Mean Platelet Volume 12.1 FL (9.6-12.0); Monocytes # 0.2 10*3/uL (0.11-0.8); Monocytes % 2.2 % (1.7-12.7); Neutrophils % 93.5 % (38.7-73.9); Platelet Count 160 T/CUMM (130-400); Red Blood Count 2.61 MC/CUMM (3.8-5.5); Red Cell Distribution Width 14.6 % (9.3-17.3); White Blood Count 7.2 T/CUMM (4-12)
[2022-11-11 05:26] LABS: Arterial Base Excess iSTAT -6 MMOL/L (-2.5-2.5); Arterial Bicarbonate iSTAT 21.4 MMOL/L (20-26); Arterial O2 Saturation iSTAT 98 % (95-100); Arterial PCO2 iSTAT 50 MM HG (35-48); Arterial PO2 iSTAT 133 MM HG (80-95); Arterial Total CO2 iSTAT 23 MMO/L (23-27); Arterial pH iSTAT 7.243 (7.35-7.45)
[2022-11-11 05:28] LABS: Lymphocytes 4 % (20-55); Total Cells Counted 100
[2022-11-11 05:29] LABS: Hypochromia Slight; Microcytosis Slight; Platelet Estimate Adequate
[2022-11-11 05:41] LABS: Albumin 2.1 G/DL (3.4-5.0); Bilirubin,Total 0.4 MG/DL (0.20-1.00); Calcium 6.5 MG/DL (8.5-10.1); Osmolality,Calculated 299.5 MOS/KG (273-304); Phosphorous 8.4 MG/DL (2.5-4.9); Potassium 4.2 MMOL/L (3.5-5.1); Total Protein 6.4 G/DL (6.4-8.2)
[2022-11-11] MEDS: LEVOTHYROXINE 100 MCG VIAL IV SCH (06:07)
[2022-11-11] MEDS: PANTOPRAZOLE 40 MG VIAL IV SCH (08:00)
[2022-11-11] MEDS: FERROUS SULFATE 325 MG TABLET PO SCH ×2 (08:08→20:37)
[2022-11-11] MEDS: FOLIC ACID 1 MG TABLET PO SCH (08:09)
[2022-11-11] MEDS: CALCIUM (CARBONATE) 500 MG TABLET PO SCH ×4 (08:09→20:36)
[2022-11-11] MEDS: metOLazone 5 MG TABLET PO SCH (08:10)
[2022-11-11] MEDS: CHOLECALCIFEROL 5,000 UNIT TABLET PO SCH (08:10)
[2022-11-11] MEDS: carvediloL 25 MG TABLET PO SCH (08:23)
[2022-11-11 11:51] LABS: Arterial Base Excess iSTAT -2 MMOL/L (-2.5-2.5); Arterial Bicarbonate iSTAT 24.8 MMOL/L (20-26); Arterial O2 Saturation iSTAT 98 % (95-100); Arterial PCO2 iSTAT 54 MM HG (35-48); Arterial PO2 iSTAT 118 MM HG (80-95); Arterial Total CO2 iSTAT 26 MMO/L (23-27); Arterial pH iSTAT 7.271 (7.35-7.45)
[2022-11-11] MEDS: carvediloL 12.5 MG TABLET PO SCH (16:44)
[2022-11-11] MEDS: HEPARIN 5,000 UNIT/1 ML VIAL SUBCUT SCH (17:07)
[2022-11-11] MEDS: ATORVASTATIN 10 MG TABLET PO SCH (20:36)
[2022-11-11] MEDS ORDERED: EPINEPHrine 1 MG/10 ML SYRINGE IV ONE (22:08)
[2022-11-11] MEDS ORDERED: SODIUM BICARBONATE 50 MEQ/50 ML SYRINGE IV ONE (22:09)
[2022-11-11] MEDS ORDERED: CALCIUM CHLORIDE 1,000 MG/10 ML SYRINGE IV ONE (22:10)
[2022-11-12] MEDS: MIDAZOLAM DRIP 100 MG/100 ML PREMIX IV PRN ×2 (01:04→14:59)
[2022-11-12] MEDS: HYDROCORTISONE 100 MG VIAL IV SCH (01:41)
[2022-11-12 03:17] LABS: ABG Base Excess -4.4 MMOL/L (-2.5-2.5); ABG HCO3 20.7 MMOL/L (20-26); ABG Oxygen Saturation 94.1 % (95-100); ABG PCO2 36.6 MM HG (35-48); ABG PH 7.359 (7.35-7.45); ABG PO2 73.9 MM HG (80-95); ABG TCO2 19.4 MMOL/L (23-27)
[2022-11-12 03:23] LABS: Hematocrit 23.5 VOL% (42.0-52.0); Hemoglobin 7.6 GM/DL (14.0-18.0); Immature Granulocytes % 0.3 %; Immature Granulocytes Absolute 0.02 #; Lymphocytes # 0.3 10*3/uL (1.4-4.0); Lymphocytes % 5.1 % (21.2-54.2); Mean Corpuscular HGB Conc 32.3 GM/DL (32-36); Mean Corpuscular Volume 96.3 FL (87-102); Mean Platelet Volume 11.3 FL (9.6-12.0); Monocytes # 0.4 10*3/uL (0.11-0.8); Monocytes % 5.6 % (1.7-12.7); Platelet Count 129 T/CUMM (130-400); Red Blood Count 2.44 MC/CUMM (3.8-5.5); Red Cell Distribution Width 14.4 % (9.3-17.3); White Blood Count 6.6 T/CUMM (4-12)
[2022-11-12 03:44] LABS: Alanine Aminotransferase 12 U/L (16-61); Albumin 1.6 G/DL (3.4-5.0); Alkaline Phosphatase 56 U/L (45-117); Aspartate Amino Transferase 12 U/L (0-37); Bilirubin,Total < 0.39 MG/DL (0.20-1.00); Blood Urea Nitrogen 58 MG/DL (7-18); Calcium 6.1 MG/DL (8.5-10.1); Carbon Dioxide 21 MMOL/L (21-32); Chloride 104 MMOL/L (98-107); Glucose 141 MG/DL (74-106); Osmolality,Calculated 294.5 MOS/KG (273-304); Phosphorous 7.2 MG/DL (2.5-4.9); Potassium 4.1 MMOL/L (3.5-5.1); Sodium 139 MMOL/L (136-145); Total Protein 5.2 G/DL (6.4-8.2)
[2022-11-12] MEDS: INSULIN LISPRO 100 UNIT/ML SUBCUT SCH ×4 (05:39→23:44)
[2022-11-12] MEDS: HEPARIN 5,000 UNIT/1 ML VIAL SUBCUT SCH ×2 (05:48→17:00)
[2022-11-12] MEDS: LEVOTHYROXINE 50 MCG TABLET PO SCH (05:48)
[2022-11-12] MEDS: PANTOPRAZOLE 40 MG VIAL IV SCH (08:20)
[2022-11-12] MEDS: carvediloL 12.5 MG TABLET PO SCH ×3 (08:26→16:05)
[2022-11-12] MEDS: PIPERACILLIN/TAZOBACTAM 3,375 MG in SODIUM CHLORIDE 0.9% 100 ML IV SCH ×3 (08:26→23:26)
[2022-11-12] MEDS: FOLIC ACID 1 MG TABLET PO SCH (08:26)
[2022-11-12] MEDS: CALCIUM (CARBONATE) 500 MG TABLET PO SCH ×4 (08:26→21:05)
[2022-11-12] MEDS: FERROUS SULFATE 325 MG TABLET PO SCH ×2 (08:26→21:01)
[2022-11-12] MEDS: TAMSULOSIN 0.4 MG CAPSULE PO SCH (08:26)
[2022-11-12] MEDS: CHOLECALCIFEROL 5,000 UNIT TABLET PO SCH (08:27)
[2022-11-12] MEDS ORDERED: cloNIDine 0.1 MG TABLET PO PRN (10:08)
[2022-11-12] MEDS: ATORVASTATIN 10 MG TABLET PO SCH (21:01)
[2022-11-13 03:51] LABS: ABG Base Excess 2.4 MMOL/L (-2.5-2.5); ABG HCO3 26.5 MMOL/L (20-26); ABG PCO2 34.6 MM HG (35-48); ABG PH 7.476 (7.35-7.45); ABG TCO2 22.1 MMOL/L (23-27)
[2022-11-13 04:55] LABS: Basophils % 0.1 % (0.0-0.8); Eosinophils # 0.1 10*3/uL (0.0-0.87); Eosinophils % 0.8 % (0.00-10.9); Hematocrit 22.7 VOL% (42.0-52.0); Hemoglobin 7.4 GM/DL (14.0-18.0); Immature Granulocytes % 0.6 %; Immature Granulocytes Absolute 0.04 #; Lymphocytes % 13.4 % (21.2-54.2); Mean Corpuscular HGB Conc 32.6 GM/DL (32-36); Mean Corpuscular Volume 96.6 FL (87-102); Mean Platelet Volume 12.4 FL (9.6-12.0); Monocytes # 0.6 10*3/uL (0.11-0.8); Monocytes % 8.3 % (1.7-12.7); Neutrophils % 76.8 % (38.7-73.9); Platelet Count 125 T/CUMM (130-400); Red Blood Count 2.35 MC/CUMM (3.8-5.5); Red Cell Distribution Width 14.6 % (9.3-17.3); White Blood Count 7.1 T/CUMM (4-12)
[2022-11-13 05:16] LABS: Alanine Aminotransferase 14 U/L (16-61); Albumin 1.9 G/DL (3.4-5.0); Alkaline Phosphatase 103 U/L (45-117); Aspartate Amino Transferase 8 U/L (0-37); Bilirubin,Total < 0.39 MG/DL (0.20-1.00); Blood Urea Nitrogen 43 MG/DL (7-18); Calcium 6.6 MG/DL (8.5-10.1); Carbon Dioxide 26 MMOL/L (21-32); Chloride 104 MMOL/L (98-107); Glucose 168 MG/DL (74-106); Osmolality,Calculated 291.5 MOS/KG (273-304); Potassium 3.3 MMOL/L (3.5-5.1); Sodium 139 MMOL/L (136-145); Total Protein 5.3 G/DL (6.4-8.2)
[2022-11-13 05:34] LABS: Platelet Estimate Adequate
[2022-11-13 05:36] LABS: Anisocytosis 2+; Burr Cells Few; Macrocytosis Slight
[2022-11-13] MEDS: LEVOTHYROXINE 50 MCG TABLET PO SCH (06:19)
[2022-11-13] MEDS: INSULIN LISPRO 100 UNIT/ML SUBCUT SCH ×3 (06:19→17:45)
[2022-11-13] MEDS: HEPARIN 5,000 UNIT/1 ML VIAL SUBCUT SCH (06:19)
[2022-11-13] MEDS: carvediloL 12.5 MG TABLET PO SCH ×2 (08:32→16:43)
[2022-11-13] MEDS: PANTOPRAZOLE 40 MG VIAL IV SCH (09:38)
[2022-11-13] MEDS: CALCIUM (CARBONATE) 500 MG TABLET PO SCH ×4 (09:39→21:18)
[2022-11-13] MEDS: CHOLECALCIFEROL 5,000 UNIT TABLET PO SCH (09:39)
[2022-11-13] MEDS: TAMSULOSIN 0.4 MG CAPSULE PO SCH (09:39)
[2022-11-13] MEDS: FOLIC ACID 1 MG TABLET PO SCH (09:39)
[2022-11-13] MEDS: FERROUS SULFATE 325 MG TABLET PO SCH ×2 (09:39→21:17)
[2022-11-13 11:40] LABS: PT Patient Result 11.2 SECS (10.1-12.1)
[2022-11-13] MEDS: PIPERACILLIN/TAZOBACTAM 3,375 MG in SODIUM CHLORIDE 0.9% 100 ML IV SCH (11:50)
[2022-11-13 11:56] LABS: Albumin 1.9 G/DL (3.4-5.0)
[2022-11-13] MEDS: ALBUTEROL/IPRATROPIUM 3 ML NEB RESP TX SCH (19:26)
[2022-11-13] MEDS: DORNASE ALFA 2.5 MG/2.5 ML VIAL RESP TX SCH (19:33)
[2022-11-13] MEDS: ATORVASTATIN 10 MG TABLET PO SCH (21:18)
[2022-11-14] MEDS: ALBUTEROL/IPRATROPIUM 3 ML NEB RESP TX SCH ×4 (00:01→19:32)
[2022-11-14] MEDS: INSULIN LISPRO 100 UNIT/ML SUBCUT SCH ×4 (00:47→17:37)
[2022-11-14] MEDS: PIPERACILLIN/TAZOBACTAM 3,375 MG in SODIUM CHLORIDE 0.9% 100 ML IV SCH ×2 (00:56→11:41)
[2022-11-14 04:05] LABS: Basophils % 0.3 % (0.0-0.8); Eosinophils # 0.1 10*3/uL (0.0-0.87); Eosinophils % 1.4 % (0.00-10.9); Hematocrit 21.4 VOL% (42.0-52.0); Hemoglobin 7.1 GM/DL (14.0-18.0); Immature Granulocytes % 0.4 %; Immature Granulocytes Absolute 0.03 #; Lymphocytes # 1.1 10*3/uL (1.4-4.0); Lymphocytes % 14.9 % (21.2-54.2); Mean Corpuscular HGB Conc 33.2 GM/DL (32-36); Mean Corpuscular Volume 93.9 FL (87-102); Mean Platelet Volume 12.1 FL (9.6-12.0); Monocytes # 0.6 10*3/uL (0.11-0.8); Monocytes % 8.8 % (1.7-12.7); Neutrophils % 74.2 % (38.7-73.9); Platelet Count 134 T/CUMM (130-400); Red Blood Count 2.28 MC/CUMM (3.8-5.5); Red Cell Distribution Width 14.3 % (9.3-17.3); White Blood Count 7.3 T/CUMM (4-12)
[2022-11-14 04:33] LABS: Alanine Aminotransferase 11 U/L (16-61); Albumin 1.7 G/DL (3.4-5.0); Alkaline Phosphatase 81 U/L (45-117); Aspartate Amino Transferase 8 U/L (0-37); Bilirubin,Total < 0.39 MG/DL (0.20-1.00); Blood Urea Nitrogen 49 MG/DL (7-18); Calcium 6.2 MG/DL (8.5-10.1); Carbon Dioxide 27 MMOL/L (21-32); Chloride 104 MMOL/L (98-107); Glucose 112 MG/DL (74-106); Osmolality,Calculated 290.5 MOS/KG (273-304); Potassium 3.7 MMOL/L (3.5-5.1); Sodium 139 MMOL/L (136-145); Total Protein 5.3 G/DL (6.4-8.2)
[2022-11-14] MEDS: LEVOTHYROXINE 50 MCG TABLET PO SCH (06:39)
[2022-11-14] MEDS: DORNASE ALFA 2.5 MG/2.5 ML VIAL RESP TX SCH ×2 (07:13→19:42)
[2022-11-14 07:33] LABS: Arterial Base Excess iSTAT 3 MMOL/L (-2.5-2.5); Arterial O2 Saturation iSTAT 100 % (95-100); Arterial PCO2 iSTAT 37 MM HG (35-48); Arterial PO2 iSTAT 206 MM HG (80-95); Arterial Total CO2 iSTAT 28 MMO/L (23-27); Arterial pH iSTAT 7.469 (7.35-7.45)
[2022-11-14] MEDS: CHOLECALCIFEROL 5,000 UNIT TABLET PO SCH (09:20)
[2022-11-14] MEDS: TAMSULOSIN 0.4 MG CAPSULE PO SCH (09:20)
[2022-11-14] MEDS: CALCIUM (CARBONATE) 500 MG TABLET PO SCH ×4 (09:20→20:45)
[2022-11-14] MEDS: FERROUS SULFATE 325 MG TABLET PO SCH ×2 (09:20→20:45)
[2022-11-14] MEDS: FOLIC ACID 1 MG TABLET PO SCH (09:20)
[2022-11-14] MEDS: PANTOPRAZOLE 40 MG VIAL IV SCH (09:20)
[2022-11-14] MEDS: carvediloL 12.5 MG TABLET PO SCH ×2 (10:28→17:36)
[2022-11-14] MEDS: ATORVASTATIN 10 MG TABLET PO SCH (20:45)
[2022-11-15] MEDS: ALBUTEROL/IPRATROPIUM 3 ML NEB RESP TX SCH ×4 (00:17→19:10)
[2022-11-15] MEDS: INSULIN LISPRO 100 UNIT/ML SUBCUT SCH ×4 (00:29→17:49)
[2022-11-15] MEDS: PIPERACILLIN/TAZOBACTAM 3,375 MG in SODIUM CHLORIDE 0.9% 100 ML IV SCH ×3 (00:52→23:51)
[2022-11-15 04:16] LABS: Arterial Base Excess iSTAT 4 MMOL/L (-2.5-2.5); Arterial Bicarbonate iSTAT 26.5 MMOL/L (20-26); Arterial O2 Saturation iSTAT 100 % (95-100); Arterial PCO2 iSTAT 33 MM HG (35-48); Arterial PO2 iSTAT 147 MM HG (80-95); Arterial Total CO2 iSTAT 28 MMO/L (23-27)
[2022-11-15 05:04] LABS: Basophils % 0.4 % (0.0-0.8); Eosinophils # 0.3 10*3/uL (0.0-0.87); Eosinophils % 3.3 % (0.00-10.9); Hematocrit 24.7 VOL% (42.0-52.0); Immature Granulocytes % 0.5 %; Immature Granulocytes Absolute 0.04 #; Lymphocytes % 13.2 % (21.2-54.2); Mean Corpuscular HGB Conc 32.4 GM/DL (32-36); Monocytes # 0.7 10*3/uL (0.11-0.8); Monocytes % 9.2 % (1.7-12.7); Neutrophils % 73.4 % (38.7-73.9); Platelet Count 104 T/CUMM (130-400); Red Cell Distribution Width 14.6 % (9.3-17.3); White Blood Count 7.6 T/CUMM (4-12)
[2022-11-15 05:13] LABS: Calcium 6.6 MG/DL (8.5-10.1); Osmolality,Calculated 285.5 MOS/KG (273-304); Potassium 3.7 MMOL/L (3.5-5.1)
[2022-11-15] MEDS: LEVOTHYROXINE 50 MCG TABLET PO SCH (06:59)
[2022-11-15] MEDS: DORNASE ALFA 2.5 MG/2.5 ML VIAL RESP TX SCH ×2 (07:07→19:10)
[2022-11-15] MEDS: FERROUS SULFATE 325 MG TABLET PO SCH ×2 (08:57→20:53)
[2022-11-15] MEDS: CHOLECALCIFEROL 5,000 UNIT TABLET PO SCH (08:57)
[2022-11-15] MEDS: FOLIC ACID 1 MG TABLET PO SCH (08:57)
[2022-11-15] MEDS: TAMSULOSIN 0.4 MG CAPSULE PO SCH (08:57)
[2022-11-15] MEDS: carvediloL 12.5 MG TABLET PO SCH ×2 (08:57→16:39)
[2022-11-15] MEDS: CALCIUM (CARBONATE) 500 MG TABLET PO SCH ×4 (08:59→20:53)
[2022-11-15] MEDS: OMEPRAZOLE ODT 20 MG TABLET PER TUBE SCH (09:01)
[2022-11-15] MEDS: amLODIPine 10 MG TABLET PO SCH (11:26)
[2022-11-15 16:03] LABS: Arterial Base Excess iSTAT 4 MMOL/L (-2.5-2.5); Arterial Bicarbonate iSTAT 27.9 MMOL/L (20-26); Arterial O2 Saturation iSTAT 99 % (95-100); Arterial PCO2 iSTAT 39 MM HG (35-48); Arterial PO2 iSTAT 139 MM HG (80-95); Arterial Total CO2 iSTAT 29 MMO/L (23-27); Arterial pH iSTAT 7.457 (7.35-7.45)
[2022-11-15] MEDS: HEPARIN 5,000 UNIT/1 ML VIAL SUBCUT SCH (17:23)
[2022-11-15] MEDS: ATORVASTATIN 10 MG TABLET PO SCH (20:53)
[2022-11-16] MEDS: INSULIN LISPRO 100 UNIT/ML SUBCUT SCH ×4 (00:08→17:47)
[2022-11-16] MEDS: ALBUTEROL/IPRATROPIUM 3 ML NEB RESP TX SCH ×5 (01:07→23:58)
[2022-11-16 03:19] LABS: Basophils % 0.1 % (0.0-0.8); Eosinophils # 0.4 10*3/uL (0.0-0.87); Eosinophils % 5.2 % (0.00-10.9); Hematocrit 24.6 VOL% (42.0-52.0); Hemoglobin 7.7 GM/DL (14.0-18.0); Immature Granulocytes % 0.8 %; Immature Granulocytes Absolute 0.06 #; Lymphocytes % 14.6 % (21.2-54.2); Mean Corpuscular HGB Conc 31.3 GM/DL (32-36); Mean Corpuscular Volume 97.6 FL (87-102); Mean Platelet Volume 12.4 FL (9.6-12.0); Monocytes # 0.7 10*3/uL (0.11-0.8); Monocytes % 9.8 % (1.7-12.7); Neutrophils % 69.5 % (38.7-73.9); Platelet Count 116 T/CUMM (130-400); Red Blood Count 2.52 MC/CUMM (3.8-5.5); Red Cell Distribution Width 14.7 % (9.3-17.3); White Blood Count 7.1 T/CUMM (4-12)
[2022-11-16 04:25] LABS: Arterial Base Excess iSTAT 2 MMOL/L (-2.5-2.5); Arterial Bicarbonate iSTAT 26.7 MMOL/L (20-26); Arterial O2 Saturation iSTAT 96 % (95-100); Arterial PCO2 iSTAT 43 MM HG (35-48); Arterial PO2 iSTAT 79 MM HG (80-95); Arterial Total CO2 iSTAT 28 MMO/L (23-27); Arterial pH iSTAT 7.406 (7.35-7.45)
[2022-11-16 04:31] LABS: Alanine Aminotransferase 10 U/L (16-61); Albumin 1.6 G/DL (3.4-5.0); Alkaline Phosphatase 72 U/L (45-117); Aspartate Amino Transferase 8 U/L (0-37); Bilirubin,Total < 0.39 MG/DL (0.20-1.00); Blood Urea Nitrogen 48 MG/DL (7-18); Calcium 6.4 MG/DL (8.5-10.1); Carbon Dioxide 28 MMOL/L (21-32); Chloride 106 MMOL/L (98-107); Glucose 104 MG/DL (74-106); Osmolality,Calculated 293.3 MOS/KG (273-304); Potassium 3.7 MMOL/L (3.5-5.1); Sodium 141 MMOL/L (136-145); Total Protein 5.6 G/DL (6.4-8.2)
[2022-11-16] MEDS: HEPARIN 5,000 UNIT/1 ML VIAL SUBCUT SCH ×2 (05:59→17:47)
[2022-11-16] MEDS: LEVOTHYROXINE 50 MCG TABLET PO SCH (05:59)
[2022-11-16] MEDS: DORNASE ALFA 2.5 MG/2.5 ML VIAL RESP TX SCH ×2 (07:10→18:58)
[2022-11-16] MEDS: carvediloL 12.5 MG TABLET PO SCH ×2 (08:29→16:25)
[2022-11-16] MEDS: OMEPRAZOLE ODT 20 MG TABLET PER TUBE SCH (08:30)
[2022-11-16] MEDS: FERROUS SULFATE 325 MG TABLET PO SCH ×2 (08:30→20:58)
[2022-11-16] MEDS: CALCIUM (CARBONATE) 500 MG TABLET PO SCH ×4 (08:30→20:58)
[2022-11-16] MEDS: TAMSULOSIN 0.4 MG CAPSULE PO SCH (08:30)
[2022-11-16] MEDS: FOLIC ACID 1 MG TABLET PO SCH (08:30)
[2022-11-16] MEDS: CHOLECALCIFEROL 5,000 UNIT TABLET PO SCH (08:31)
[2022-11-16] MEDS: amLODIPine 10 MG TABLET PO SCH (09:04)
[2022-11-16] MEDS: PIPERACILLIN/TAZOBACTAM 3,375 MG in SODIUM CHLORIDE 0.9% 100 ML IV SCH (11:44)
[2022-11-16] MEDS: ACETAMINOPHEN 325 MG TABLET PO PRN (16:25)
[2022-11-16] MEDS: SODIUM CHLORIDE 3% 4 ML NEB RESP TX SCH (18:58)
[2022-11-16] MEDS: ATORVASTATIN 10 MG TABLET PO SCH (20:58)
[2022-11-17] MEDS: PIPERACILLIN/TAZOBACTAM 3,375 MG in SODIUM CHLORIDE 0.9% 100 ML IV SCH ×3 (00:14→23:54)
[2022-11-17] MEDS: INSULIN LISPRO 100 UNIT/ML SUBCUT SCH ×4 (00:32→17:03)
[2022-11-17 04:08] LABS: Arterial Base Excess iSTAT 3 MMOL/L (-2.5-2.5); Arterial O2 Saturation iSTAT 90 % (95-100); Arterial PCO2 iSTAT 38 MM HG (35-48); Arterial PO2 iSTAT 56 MM HG (80-95); Arterial Total CO2 iSTAT 28 MMO/L (23-27); Arterial pH iSTAT 7.455 (7.35-7.45)
[2022-11-17 04:09] LABS: Basophils % 0.3 % (0.0-0.8); Eosinophils # 0.4 10*3/uL (0.0-0.87); Hematocrit 24.6 VOL% (42.0-52.0); Hemoglobin 7.8 GM/DL (14.0-18.0); Immature Granulocytes Absolute 0.08 #; Lymphocytes # 0.9 10*3/uL (1.4-4.0); Lymphocytes % 11.1 % (21.2-54.2); Mean Corpuscular HGB Conc 31.7 GM/DL (32-36); Mean Corpuscular Volume 97.2 FL (87-102); Mean Platelet Volume 12.4 FL (9.6-12.0); Monocytes # 0.8 10*3/uL (0.11-0.8); Monocytes % 9.6 % (1.7-12.7); Platelet Count 111 T/CUMM (130-400); Red Blood Count 2.53 MC/CUMM (3.8-5.5); Red Cell Distribution Width 14.8 % (9.3-17.3)
[2022-11-17 04:20] LABS: Calcium 7.1 MG/DL (8.5-10.1); Osmolality,Calculated 286.4 MOS/KG (273-304); Potassium 3.4 MMOL/L (3.5-5.1)
[2022-11-17] MEDS: LEVOTHYROXINE 50 MCG TABLET PO SCH (06:28)
[2022-11-17] MEDS: HEPARIN 5,000 UNIT/1 ML VIAL SUBCUT SCH ×2 (06:28→17:02)
[2022-11-17] MEDS: ALBUTEROL/IPRATROPIUM 3 ML NEB RESP TX SCH ×3 (06:53→18:48)
[2022-11-17] MEDS: DORNASE ALFA 2.5 MG/2.5 ML VIAL RESP TX SCH ×2 (06:53→18:48)
[2022-11-17] MEDS: SODIUM CHLORIDE 3% 4 ML NEB RESP TX SCH ×2 (06:53→18:48)
[2022-11-17] MEDS: carvediloL 12.5 MG TABLET PO SCH ×2 (08:15→17:02)
[2022-11-17] MEDS: TAMSULOSIN 0.4 MG CAPSULE PO SCH (08:15)
[2022-11-17] MEDS: FOLIC ACID 1 MG TABLET PO SCH (08:15)
[2022-11-17] MEDS: CHOLECALCIFEROL 5,000 UNIT TABLET PO SCH (08:15)
[2022-11-17] MEDS: FERROUS SULFATE 325 MG TABLET PO SCH ×2 (08:16→20:07)
[2022-11-17] MEDS: amLODIPine 10 MG TABLET PO SCH (08:16)
[2022-11-17] MEDS: OMEPRAZOLE ODT 20 MG TABLET PER TUBE SCH (08:16)
[2022-11-17] MEDS: CALCIUM (CARBONATE) 500 MG TABLET PO SCH ×2 (08:29→20:08)
[2022-11-17] MEDS: ATORVASTATIN 10 MG TABLET PO SCH (20:07)
[2022-11-18] MEDS: INSULIN LISPRO 100 UNIT/ML SUBCUT SCH ×4 (00:14→18:44)
[2022-11-18] MEDS: ALBUTEROL/IPRATROPIUM 3 ML NEB RESP TX SCH ×4 (00:20→19:12)
[2022-11-18 03:33] LABS: Arterial Base Excess iSTAT 6 MMOL/L (-2.5-2.5); Arterial Bicarbonate iSTAT 28.8 MMOL/L (20-26); Arterial O2 Saturation iSTAT 100 % (95-100); Arterial PCO2 iSTAT 34 MM HG (35-48); Arterial PO2 iSTAT 293 MM HG (80-95); Arterial Total CO2 iSTAT 30 MMO/L (23-27); Arterial pH iSTAT 7.532 (7.35-7.45)
[2022-11-18 04:48] LABS: Basophils % 0.4 % (0.0-0.8); Eosinophils # 0.4 10*3/uL (0.0-0.87); Eosinophils % 5.2 % (0.00-10.9); Hematocrit 25.1 VOL% (42.0-52.0); Immature Granulocytes % 1.1 %; Immature Granulocytes Absolute 0.09 #; Mean Corpuscular HGB Conc 31.9 GM/DL (32-36); Mean Corpuscular Volume 96.2 FL (87-102); Mean Platelet Volume 12.9 FL (9.6-12.0); Monocytes # 0.8 10*3/uL (0.11-0.8); Monocytes % 9.5 % (1.7-12.7); Neutrophils % 71.8 % (38.7-73.9); Platelet Count 150 T/CUMM (130-400); Red Blood Count 2.61 MC/CUMM (3.8-5.5); Red Cell Distribution Width 14.8 % (9.3-17.3); White Blood Count 8.1 T/CUMM (4-12)
[2022-11-18 05:11] LABS: Alanine Aminotransferase 11 U/L (16-61); Albumin 1.7 G/DL (3.4-5.0); Alkaline Phosphatase 93 U/L (45-117); Aspartate Amino Transferase 17 U/L (0-37); Bilirubin,Total < 0.39 MG/DL (0.20-1.00); Blood Urea Nitrogen 46 MG/DL (7-18); Calcium 7.4 MG/DL (8.5-10.1); Carbon Dioxide 25 MMOL/L (21-32); Chloride 104 MMOL/L (98-107); Glucose 90 MG/DL (74-106); Osmolality,Calculated 288.5 MOS/KG (273-304); Potassium 3.5 MMOL/L (3.5-5.1); Sodium 139 MMOL/L (136-145)
[2022-11-18] MEDS: HEPARIN 5,000 UNIT/1 ML VIAL SUBCUT SCH ×2 (05:28→18:43)
[2022-11-18] MEDS: LEVOTHYROXINE 50 MCG TABLET PO SCH (05:44)
[2022-11-18] MEDS: SODIUM CHLORIDE 3% 4 ML NEB RESP TX SCH ×2 (07:38→19:12)
[2022-11-18] MEDS: DORNASE ALFA 2.5 MG/2.5 ML VIAL RESP TX SCH ×2 (07:52→19:21)
[2022-11-18] MEDS: CHOLECALCIFEROL 5,000 UNIT TABLET PO SCH (08:28)
[2022-11-18] MEDS: CALCIUM (CARBONATE) 500 MG TABLET PO SCH ×2 (08:28→20:25)
[2022-11-18] MEDS: FOLIC ACID 1 MG TABLET PO SCH (08:28)
[2022-11-18] MEDS: FERROUS SULFATE 325 MG TABLET PO SCH ×2 (08:29→20:25)
[2022-11-18] MEDS: carvediloL 12.5 MG TABLET PO SCH ×2 (08:29→17:01)
[2022-11-18] MEDS: OMEPRAZOLE ODT 20 MG TABLET PER TUBE SCH (08:29)
[2022-11-18] MEDS: TAMSULOSIN 0.4 MG CAPSULE PO SCH (08:29)
[2022-11-18] MEDS: PIPERACILLIN/TAZOBACTAM 3,375 MG in SODIUM CHLORIDE 0.9% 100 ML IV SCH (12:03)
[2022-11-18] MEDS: cefTRIAXone 1,000 MG in SODIUM CHLORIDE 0.9% 100 ML IV SCH (15:42)
[2022-11-18] MEDS: POLYETHYLENE GLYCOL POWDER 17 GM PACK PO SCH (15:42)
[2022-11-18] MEDS: ATORVASTATIN 10 MG TABLET PO SCH (20:25)
[2022-11-19] MEDS: INSULIN LISPRO 100 UNIT/ML SUBCUT SCH ×4 (00:40→18:01)
[2022-11-19] MEDS: ALBUTEROL/IPRATROPIUM 3 ML NEB RESP TX SCH ×4 (00:41→19:21)
[2022-11-19 03:57] LABS: Basophils % 0.5 % (0.0-0.8); Eosinophils # 0.4 10*3/uL (0.0-0.87); Eosinophils % 5.6 % (0.00-10.9); Hematocrit 24.1 VOL% (42.0-52.0); Hemoglobin 7.6 GM/DL (14.0-18.0); Immature Granulocytes % 0.9 %; Immature Granulocytes Absolute 0.07 #; Lymphocytes # 1.2 10*3/uL (1.4-4.0); Lymphocytes % 15.6 % (21.2-54.2); Mean Corpuscular HGB Conc 31.5 GM/DL (32-36); Mean Corpuscular Volume 97.2 FL (87-102); Mean Platelet Volume 11.8 FL (9.6-12.0); Monocytes # 0.8 10*3/uL (0.11-0.8); Neutrophils % 66.4 % (38.7-73.9); Platelet Count 175 T/CUMM (130-400); Red Blood Count 2.48 MC/CUMM (3.8-5.5); Red Cell Distribution Width 14.9 % (9.3-17.3); White Blood Count 7.6 T/CUMM (4-12)
[2022-11-19 04:11] LABS: Osmolality,Calculated 294.4 MOS/KG (273-304); Potassium 3.9 MMOL/L (3.5-5.1)
[2022-11-19 04:24] LABS: Arterial Base Excess iSTAT 2 MMOL/L (-2.5-2.5); Arterial Bicarbonate iSTAT 26.8 MMOL/L (20-26); Arterial O2 Saturation iSTAT 100 % (95-100); Arterial PCO2 iSTAT 45 MM HG (35-48); Arterial PO2 iSTAT 220 MM HG (80-95); Arterial Total CO2 iSTAT 28 MMO/L (23-27); Arterial pH iSTAT 7.388 (7.35-7.45)
[2022-11-19] MEDS: LEVOTHYROXINE 50 MCG TABLET PO SCH (06:12)
[2022-11-19] MEDS: HEPARIN 5,000 UNIT/1 ML VIAL SUBCUT SCH ×2 (06:13→18:01)
[2022-11-19] MEDS: SODIUM CHLORIDE 3% 4 ML NEB RESP TX SCH ×2 (07:30→19:21)
[2022-11-19] MEDS: DORNASE ALFA 2.5 MG/2.5 ML VIAL RESP TX SCH ×2 (08:04→19:44)
[2022-11-19] MEDS: CALCIUM (CARBONATE) 500 MG TABLET PO SCH ×2 (09:13→20:54)
[2022-11-19] MEDS: MULTIVITAMIN (BEROCCA) TABLET PO SCH (09:13)
[2022-11-19] MEDS: CHOLECALCIFEROL 5,000 UNIT TABLET PO SCH (09:15)
[2022-11-19] MEDS: carvediloL 12.5 MG TABLET PO SCH ×2 (09:15→18:01)
[2022-11-19] MEDS: FOLIC ACID 1 MG TABLET PO SCH (09:16)
[2022-11-19] MEDS: cefTRIAXone 1,000 MG in SODIUM CHLORIDE 0.9% 100 ML IV SCH (09:16)
[2022-11-19] MEDS: FERROUS SULFATE 325 MG TABLET PO SCH ×2 (09:16→20:54)
[2022-11-19] MEDS: TAMSULOSIN 0.4 MG CAPSULE PO SCH (09:17)
[2022-11-19] MEDS: POLYETHYLENE GLYCOL POWDER 17 GM PACK PO SCH (09:17)
[2022-11-19] MEDS: OMEPRAZOLE ODT 20 MG TABLET PER TUBE SCH (09:17)
[2022-11-19] MEDS: ATORVASTATIN 10 MG TABLET PO SCH (20:54)
[2022-11-20] MEDS: ALBUTEROL/IPRATROPIUM 3 ML NEB RESP TX SCH ×4 (00:27→19:20)
[2022-11-20] MEDS: INSULIN LISPRO 100 UNIT/ML SUBCUT SCH ×4 (00:48→18:21)
[2022-11-20 03:45] LABS: Basophils % 0.5 % (0.0-0.8); Eosinophils # 0.5 10*3/uL (0.0-0.87); Eosinophils % 6.1 % (0.00-10.9); Hemoglobin 7.7 GM/DL (14.0-18.0); Immature Granulocytes % 0.8 %; Immature Granulocytes Absolute 0.07 #; Lymphocytes # 1.2 10*3/uL (1.4-4.0); Lymphocytes % 13.5 % (21.2-54.2); Mean Corpuscular HGB Conc 32.1 GM/DL (32-36); Mean Corpuscular Volume 97.6 FL (87-102); Mean Platelet Volume 11.9 FL (9.6-12.0); Monocytes # 0.9 10*3/uL (0.11-0.8); Monocytes % 9.7 % (1.7-12.7); Neutrophils % 69.4 % (38.7-73.9); Platelet Count 181 T/CUMM (130-400); Red Blood Count 2.46 MC/CUMM (3.8-5.5); Red Cell Distribution Width 14.9 % (9.3-17.3); White Blood Count 8.9 T/CUMM (4-12)
[2022-11-20 03:47] LABS: Arterial Base Excess iSTAT 3 MMOL/L (-2.5-2.5); Arterial Bicarbonate iSTAT 27.8 MMOL/L (20-26); Arterial O2 Saturation iSTAT 92 % (95-100); Arterial PCO2 iSTAT 41 MM HG (35-48); Arterial PO2 iSTAT 61 MM HG (80-95); Arterial Total CO2 iSTAT 29 MMO/L (23-27); Arterial pH iSTAT 7.437 (7.35-7.45)
[2022-11-20 03:53] LABS: Calcium 7.5 MG/DL (8.5-10.1); Osmolality,Calculated 286.5 MOS/KG (273-304); Potassium 3.9 MMOL/L (3.5-5.1)
[2022-11-20] MEDS: LEVOTHYROXINE 50 MCG TABLET PO SCH (06:27)
[2022-11-20] MEDS: HEPARIN 5,000 UNIT/1 ML VIAL SUBCUT SCH ×2 (06:28→18:20)
[2022-11-20] MEDS: DORNASE ALFA 2.5 MG/2.5 ML VIAL RESP TX SCH (07:05)
[2022-11-20] MEDS: SODIUM CHLORIDE 3% 4 ML NEB RESP TX SCH (07:05)
[2022-11-20] MEDS: carvediloL 12.5 MG TABLET PO SCH ×2 (08:48→16:29)
[2022-11-20] MEDS: TAMSULOSIN 0.4 MG CAPSULE PO SCH (08:49)
[2022-11-20] MEDS: FERROUS SULFATE 325 MG TABLET PO SCH ×2 (08:49→20:33)
[2022-11-20] MEDS: MULTIVITAMIN (BEROCCA) TABLET PO SCH (08:49)
[2022-11-20] MEDS: OMEPRAZOLE ODT 20 MG TABLET PER TUBE SCH (08:49)
[2022-11-20] MEDS: FOLIC ACID 1 MG TABLET PO SCH (08:49)
[2022-11-20] MEDS: POLYETHYLENE GLYCOL POWDER 17 GM PACK PO SCH (08:49)
[2022-11-20] MEDS: CALCIUM (CARBONATE) 500 MG TABLET PO SCH ×2 (08:49→20:33)
[2022-11-20] MEDS: hydrALAZINE 25 MG TABLET PO SCH ×3 (08:49→20:33)
[2022-11-20] MEDS: cefTRIAXone 1,000 MG in SODIUM CHLORIDE 0.9% 100 ML IV SCH (10:10)
[2022-11-20] MEDS: CHOLECALCIFEROL 5,000 UNIT TABLET PO SCH (10:42)
[2022-11-20] MEDS ORDERED: EPOETIN ALFA-EPBX 4,000 UNIT/ML VIAL IV PRN (12:39)
[2022-11-20] MEDS: ATORVASTATIN 10 MG TABLET PO SCH (20:33)
[2022-11-21] MEDS: ALBUTEROL/IPRATROPIUM 3 ML NEB RESP TX SCH ×4 (00:30→19:15)
[2022-11-21] MEDS: INSULIN LISPRO 100 UNIT/ML SUBCUT SCH ×5 (02:22→23:55)
[2022-11-21 04:11] LABS: Arterial Base Excess iSTAT 2 MMOL/L (-2.5-2.5); Arterial Bicarbonate iSTAT 25.8 MMOL/L (20-26); Arterial O2 Saturation iSTAT 100 % (95-100); Arterial PCO2 iSTAT 37 MM HG (35-48); Arterial PO2 iSTAT 210 MM HG (80-95); Arterial Total CO2 iSTAT 27 MMO/L (23-27); Arterial pH iSTAT 7.447 (7.35-7.45)
[2022-11-21 04:29] LABS: Basophils % 0.3 % (0.0-0.8); Eosinophils # 0.5 10*3/uL (0.0-0.87); Eosinophils % 5.4 % (0.00-10.9); Hematocrit 24.2 VOL% (42.0-52.0); Hemoglobin 7.7 GM/DL (14.0-18.0); Immature Granulocytes % 0.6 %; Immature Granulocytes Absolute 0.06 #; Lymphocytes # 1.2 10*3/uL (1.4-4.0); Lymphocytes % 13.1 % (21.2-54.2); Mean Corpuscular HGB Conc 31.8 GM/DL (32-36); Mean Platelet Volume 11.5 FL (9.6-12.0); Monocytes % 10.8 % (1.7-12.7); Neutrophils % 69.8 % (38.7-73.9); Platelet Count 214 T/CUMM (130-400); Red Blood Count 2.47 MC/CUMM (3.8-5.5); Red Cell Distribution Width 14.8 % (9.3-17.3); White Blood Count 9.3 T/CUMM (4-12)
[2022-11-21 04:42] LABS: Calcium 7.8 MG/DL (8.5-10.1); Potassium 3.8 MMOL/L (3.5-5.1)
[2022-11-21 04:53] LABS: Phosphorous 5.4 MG/DL (2.5-4.9)
[2022-11-21] MEDS: HEPARIN 5,000 UNIT/1 ML VIAL SUBCUT SCH (06:28)
[2022-11-21] MEDS: LEVOTHYROXINE 50 MCG TABLET PO SCH (06:28)
[2022-11-21] MEDS ORDERED: SODIUM CHLORIDE 0.9% 1,000 ML IV PRN (08:01)
[2022-11-21] MEDS: carvediloL 12.5 MG TABLET PO SCH ×2 (09:16→18:01)
[2022-11-21] MEDS: MULTIVITAMIN (BEROCCA) TABLET PO SCH (09:17)
[2022-11-21] MEDS: FOLIC ACID 1 MG TABLET PO SCH (09:17)
[2022-11-21] MEDS: CHOLECALCIFEROL 5,000 UNIT TABLET PO SCH (09:17)
[2022-11-21] MEDS: cefTRIAXone 1,000 MG in SODIUM CHLORIDE 0.9% 100 ML IV SCH (09:17)
[2022-11-21] MEDS: TAMSULOSIN 0.4 MG CAPSULE PO SCH (09:17)
[2022-11-21] MEDS: POLYETHYLENE GLYCOL POWDER 17 GM PACK PO SCH (09:17)
[2022-11-21] MEDS: OMEPRAZOLE ODT 20 MG TABLET PER TUBE SCH (09:17)
[2022-11-21] MEDS: CALCIUM (CARBONATE) 500 MG TABLET PO SCH ×2 (09:17→20:57)
[2022-11-21] MEDS: FERROUS SULFATE 325 MG TABLET PO SCH ×2 (09:17→20:57)
[2022-11-21] MEDS ORDERED: ZINC OXIDE PASTE 113 GM TUBE TOP PRN (15:42)
[2022-11-21] MEDS: ATORVASTATIN 10 MG TABLET PO SCH (20:57)
[2022-11-22] MEDS: ALBUTEROL/IPRATROPIUM 3 ML NEB RESP TX SCH ×4 (00:20→19:05)
[2022-11-22 03:38] LABS: Arterial Base Excess iSTAT 3 MMOL/L (-2.5-2.5); Arterial Bicarbonate iSTAT 26.8 MMOL/L (20-26); Arterial O2 Saturation iSTAT 100 % (95-100); Arterial PCO2 iSTAT 39 MM HG (35-48); Arterial PO2 iSTAT 213 MM HG (80-95); Arterial Total CO2 iSTAT 28 MMO/L (23-27); Arterial pH iSTAT 7.444 (7.35-7.45)
[2022-11-22 05:02] LABS: Basophils # 0.1 10*3/uL (0.0-0.2); Basophils % 0.6 % (0.0-0.8); Eosinophils # 0.5 10*3/uL (0.0-0.87); Eosinophils % 4.9 % (0.00-10.9); Hematocrit 26.9 VOL% (42.0-52.0); Hemoglobin 8.6 GM/DL (14.0-18.0); Immature Granulocytes % 0.7 %; Immature Granulocytes Absolute 0.07 #; Lymphocytes # 1.2 10*3/uL (1.4-4.0); Mean Corpuscular Volume 97.1 FL (87-102); Mean Platelet Volume 11.8 FL (9.6-12.0); Monocytes # 1.1 10*3/uL (0.11-0.8); Monocytes % 10.2 % (1.7-12.7); Neutrophils % 71.6 % (38.7-73.9); Platelet Count 189 T/CUMM (130-400); Red Blood Count 2.77 MC/CUMM (3.8-5.5); Red Cell Distribution Width 15.2 % (9.3-17.3); White Blood Count 10.3 T/CUMM (4-12)
[2022-11-22 05:20] LABS: Calcium 7.9 MG/DL (8.5-10.1); Osmolality,Calculated 289.4 MOS/KG (273-304); Potassium 3.6 MMOL/L (3.5-5.1)
[2022-11-22] MEDS: INSULIN LISPRO 100 UNIT/ML SUBCUT SCH ×3 (06:15→17:54)
[2022-11-22] MEDS: LEVOTHYROXINE 50 MCG TABLET PO SCH (06:32)
[2022-11-22] MEDS: MULTIVITAMIN (BEROCCA) TABLET PO SCH (08:23)
[2022-11-22] MEDS: FERROUS SULFATE 325 MG TABLET PO SCH ×2 (08:23→20:36)
[2022-11-22] MEDS: carvediloL 12.5 MG TABLET PO SCH ×2 (08:23→16:42)
[2022-11-22] MEDS: CHOLECALCIFEROL 5,000 UNIT TABLET PO SCH (08:24)
[2022-11-22] MEDS: TAMSULOSIN 0.4 MG CAPSULE PO SCH (08:24)
[2022-11-22] MEDS: FOLIC ACID 1 MG TABLET PO SCH (08:24)
[2022-11-22] MEDS: POLYETHYLENE GLYCOL POWDER 17 GM PACK PO SCH (08:24)
[2022-11-22] MEDS: OMEPRAZOLE ODT 20 MG TABLET PER TUBE SCH (08:24)
[2022-11-22] MEDS: CALCIUM (CARBONATE) 500 MG TABLET PO SCH ×2 (08:25→20:36)
[2022-11-22] MEDS: cefTRIAXone 1,000 MG in SODIUM CHLORIDE 0.9% 100 ML IV SCH (08:25)
[2022-11-22] MEDS: ATORVASTATIN 10 MG TABLET PO SCH (20:36)
[2022-11-23] MEDS: ALBUTEROL/IPRATROPIUM 3 ML NEB RESP TX SCH ×4 (00:06→19:52)
[2022-11-23 03:07] LABS: ABG Base Excess -0.8 MMOL/L (-2.5-2.5); ABG HCO3 23.8 MMOL/L (20-26); ABG Oxygen Saturation 98.7 % (95-100); ABG PCO2 48.7 MM HG (35-48); ABG PH 7.328 (7.35-7.45); ABG TCO2 23.6 MMOL/L (23-27)
[2022-11-23 04:17] LABS: Basophils # 0.1 10*3/uL (0.0-0.2); Basophils % 0.7 % (0.0-0.8); Eosinophils # 0.6 10*3/uL (0.0-0.87); Eosinophils % 6.1 % (0.00-10.9); Hematocrit 26.3 VOL% (42.0-52.0); Hemoglobin 8.4 GM/DL (14.0-18.0); Immature Granulocytes % 0.4 %; Immature Granulocytes Absolute 0.04 #; Lymphocytes # 1.1 10*3/uL (1.4-4.0); Lymphocytes % 10.8 % (21.2-54.2); Mean Corpuscular HGB Conc 31.9 GM/DL (32-36); Mean Platelet Volume 11.4 FL (9.6-12.0); Monocytes # 0.9 10*3/uL (0.11-0.8); Monocytes % 8.6 % (1.7-12.7); Neutrophils % 73.4 % (38.7-73.9); Platelet Count 222 T/CUMM (130-400); Red Blood Count 2.71 MC/CUMM (3.8-5.5); Red Cell Distribution Width 15.4 % (9.3-17.3); White Blood Count 10.5 T/CUMM (4-12)
[2022-11-23 04:32] LABS: Calcium 8.1 MG/DL (8.5-10.1); Osmolality,Calculated 297.1 MOS/KG (273-304); Potassium 3.9 MMOL/L (3.5-5.1)
[2022-11-23] MEDS: INSULIN LISPRO 100 UNIT/ML SUBCUT SCH ×4 (06:28→17:38)
[2022-11-23] MEDS: LEVOTHYROXINE 50 MCG TABLET PO SCH (06:32)
[2022-11-23 06:45] LABS: Eosinophils 8 % (0-10); Hypochromia Slight; Lymphocytes 12 % (20-55); Platelet Estimate Normal; Total Cells Counted 100
[2022-11-23] MEDS: FOLIC ACID 1 MG TABLET PO SCH (08:29)
[2022-11-23] MEDS: POLYETHYLENE GLYCOL POWDER 17 GM PACK PO SCH (08:29)
[2022-11-23] MEDS: FERROUS SULFATE 325 MG TABLET PO SCH ×2 (08:30→21:33)
[2022-11-23] MEDS: CHOLECALCIFEROL 5,000 UNIT TABLET PO SCH (08:30)
[2022-11-23] MEDS: CALCIUM (CARBONATE) 500 MG TABLET PO SCH ×2 (08:30→21:33)
[2022-11-23] MEDS: TAMSULOSIN 0.4 MG CAPSULE PO SCH (08:30)
[2022-11-23] MEDS: MULTIVITAMIN (BEROCCA) TABLET PO SCH (08:30)
[2022-11-23] MEDS: carvediloL 12.5 MG TABLET PO SCH ×2 (08:30→16:00)
[2022-11-23] MEDS: OMEPRAZOLE ODT 20 MG TABLET PER TUBE SCH (08:30)
[2022-11-23] MEDS: SCOPOLAMINE 1.5 MG PATCH TRANSDERM SCH (16:00)
[2022-11-23] MEDS: ATORVASTATIN 10 MG TABLET PO SCH (21:33)
[2022-11-23] MEDS: ACETAMINOPHEN 325 MG TABLET PO PRN (21:54)
[2022-11-24] MEDS: INSULIN LISPRO 100 UNIT/ML SUBCUT SCH ×4 (00:24→17:57)
[2022-11-24] MEDS: ALBUTEROL/IPRATROPIUM 3 ML NEB RESP TX SCH ×4 (00:40→20:07)
[2022-11-24 03:55] LABS: Calcium 9.1 MG/DL (8.5-10.1); Osmolality,Calculated 284.3 MOS/KG (273-304); Potassium 4.5 MMOL/L (3.5-5.1)
[2022-11-24 04:41] LABS: Basophils # 0.1 10*3/uL (0.0-0.2); Basophils % 0.5 % (0.0-0.8); Eosinophils # 0.5 10*3/uL (0.0-0.87); Eosinophils % 3.1 % (0.00-10.9); Hematocrit 25.3 VOL% (42.0-52.0); Immature Granulocytes % 0.5 %; Immature Granulocytes Absolute 0.09 #; Lymphocytes # 1.3 10*3/uL (1.4-4.0); Mean Corpuscular HGB Conc 31.6 GM/DL (32-36); Mean Corpuscular Volume 98.4 FL (87-102); Mean Platelet Volume 11.5 FL (9.6-12.0); Monocytes # 1.1 10*3/uL (0.11-0.8); Monocytes % 6.8 % (1.7-12.7); Neutrophils % 81.1 % (38.7-73.9); Platelet Count 213 T/CUMM (130-400); Red Blood Count 2.57 MC/CUMM (3.8-5.5); Red Cell Distribution Width 15.1 % (9.3-17.3); White Blood Count 16.44 T/CUMM (4-12)
[2022-11-24 05:28] LABS: Arterial Base Excess iSTAT 1 MMOL/L (-2.5-2.5); Arterial Bicarbonate iSTAT 26.3 MMOL/L (20-26); Arterial O2 Saturation iSTAT 100 % (95-100); Arterial PCO2 iSTAT 41 MM HG (35-48); Arterial PO2 iSTAT 166 MM HG (80-95); Arterial Total CO2 iSTAT 28 MMO/L (23-27)
[2022-11-24] MEDS: LEVOTHYROXINE 50 MCG TABLET PO SCH (06:34)
[2022-11-24] MEDS: carvediloL 12.5 MG TABLET PO SCH ×2 (07:59→16:09)
[2022-11-24] MEDS: TAMSULOSIN 0.4 MG CAPSULE PO SCH (08:02)
[2022-11-24] MEDS: OMEPRAZOLE ODT 20 MG TABLET PER TUBE SCH (08:02)
[2022-11-24] MEDS: CHOLECALCIFEROL 5,000 UNIT TABLET PO SCH (08:02)
[2022-11-24] MEDS: POLYETHYLENE GLYCOL POWDER 17 GM PACK PO SCH (08:02)
[2022-11-24] MEDS: FERROUS SULFATE 325 MG TABLET PO SCH ×2 (08:02→20:57)
[2022-11-24] MEDS: MULTIVITAMIN (BEROCCA) TABLET PO SCH (08:02)
[2022-11-24] MEDS: CALCIUM (CARBONATE) 500 MG TABLET PO SCH ×2 (08:02→20:58)
[2022-11-24] MEDS: FOLIC ACID 1 MG TABLET PO SCH (08:02)
[2022-11-24] MEDS: ATORVASTATIN 10 MG TABLET PO SCH (20:57)
[2022-11-25] MEDS: ALBUTEROL/IPRATROPIUM 3 ML NEB RESP TX SCH ×5 (00:52→23:40)
[2022-11-25] MEDS: INSULIN LISPRO 100 UNIT/ML SUBCUT SCH ×4 (01:10→18:10)
[2022-11-25 05:02] LABS: Arterial Base Excess iSTAT 0 MMOL/L (-2.5-2.5); Arterial Bicarbonate iSTAT 25.7 MMOL/L (20-26); Arterial O2 Saturation iSTAT 99 % (95-100); Arterial PCO2 iSTAT 48 MM HG (35-48); Arterial PO2 iSTAT 139 MM HG (80-95); Arterial Total CO2 iSTAT 27 MMO/L (23-27); Arterial pH iSTAT 7.336 (7.35-7.45)
[2022-11-25] MEDS: LEVOTHYROXINE 50 MCG TABLET PO SCH (06:24)
[2022-11-25 06:47] LABS: Basophils # 0.1 10*3/uL (0.0-0.2); Basophils % 0.4 % (0.0-0.8); Eosinophils # 0.7 10*3/uL (0.0-0.87); Eosinophils % 5.5 % (0.00-10.9); Hematocrit 25.9 VOL% (42.0-52.0); Hemoglobin 8.1 GM/DL (14.0-18.0); Immature Granulocytes % 0.5 %; Immature Granulocytes Absolute 0.06 #; Lymphocytes # 0.9 10*3/uL (1.4-4.0); Lymphocytes % 7.3 % (21.2-54.2); Mean Corpuscular HGB Conc 31.3 GM/DL (32-36); Mean Corpuscular Volume 97.4 FL (87-102); Mean Platelet Volume 10.6 FL (9.6-12.0); Monocytes # 0.9 10*3/uL (0.11-0.8); Monocytes % 6.9 % (1.7-12.7); Neutrophils % 79.4 % (38.7-73.9); Platelet Count 233 T/CUMM (130-400); Red Blood Count 2.66 MC/CUMM (3.8-5.5); Red Cell Distribution Width 15.4 % (9.3-17.3); White Blood Count 12.67 T/CUMM (4-12)
[2022-11-25 07:34] LABS: Calcium 8.5 MG/DL (8.5-10.1); Osmolality,Calculated 288.8 MOS/KG (273-304); Potassium 4.2 MMOL/L (3.5-5.1)
[2022-11-25] MEDS: OMEPRAZOLE ODT 20 MG TABLET PER TUBE SCH (08:22)
[2022-11-25] MEDS: CHOLECALCIFEROL 5,000 UNIT TABLET PO SCH (08:22)
[2022-11-25] MEDS: FERROUS SULFATE 325 MG TABLET PO SCH ×2 (08:23→20:26)
[2022-11-25] MEDS: MULTIVITAMIN (BEROCCA) TABLET PO SCH (08:23)
[2022-11-25] MEDS: TAMSULOSIN 0.4 MG CAPSULE PO SCH (08:23)
[2022-11-25] MEDS: CALCIUM (CARBONATE) 500 MG TABLET PO SCH ×2 (08:23→20:27)
[2022-11-25] MEDS: carvediloL 12.5 MG TABLET PO SCH ×2 (08:23→16:04)
[2022-11-25] MEDS: POLYETHYLENE GLYCOL POWDER 17 GM PACK PO SCH (08:23)
[2022-11-25] MEDS: FOLIC ACID 1 MG TABLET PO SCH (08:23)
[2022-11-25] MEDS: SEVELAMER CARBONATE 800 MG TABLET PO SCH ×3 (08:40→20:26)
[2022-11-25] MEDS: ACETAMINOPHEN 325 MG TABLET PO PRN (15:30)
[2022-11-25 18:42] LABS: Protein,Urine >=300 mg/dL (Negative); Urine Appearance Cloudy (Clear); Urine Color Yellow (Yellow); Urine Specific Gravity 1.025 (1.001-1.035); Urine pH 5.5 (4.5-8.0)
[2022-11-25 18:43] LABS: Bilirubin,Urine Negative (Negative); Blood, Urine Negative (Negative); Glucose,Urine (UA) 100 mg/dL (Negative); Ketones,Urine Negative (Negative); Nitrite,Urine Negative (Negative); Urine Urobilinogen 0.2 eU/dL (<2.0)
[2022-11-25 18:47] LABS: Amorphous Crystals,Urine Occasional /HPF (Few); Bacteria,Urine Occasional /HPF (Few); Squamous Epithelial Cell,Urine Occasional /HPF (0-10)
[2022-11-25] MEDS: ATORVASTATIN 10 MG TABLET PO SCH (20:27)
[2022-11-26] MEDS: INSULIN LISPRO 100 UNIT/ML SUBCUT SCH ×5 (00:01→23:52)
[2022-11-26 04:06] LABS: Arterial Base Excess iSTAT -2 MMOL/L (-2.5-2.5); Arterial Bicarbonate iSTAT 23.4 MMOL/L (20-26); Arterial O2 Saturation iSTAT 99 % (95-100); Arterial PCO2 iSTAT 43 MM HG (35-48); Arterial PO2 iSTAT 128 MM HG (80-95); Arterial Total CO2 iSTAT 25 MMO/L (23-27)
[2022-11-26 04:58] LABS: Basophils # 0.1 10*3/uL (0.0-0.2); Basophils % 0.3 % (0.0-0.8); Eosinophils # 0.6 10*3/uL (0.0-0.87); Eosinophils % 4.2 % (0.00-10.9); Hematocrit 25.9 VOL% (42.0-52.0); Hemoglobin 8.1 GM/DL (14.0-18.0); Immature Granulocytes % 0.4 %; Immature Granulocytes Absolute 0.06 #; Lymphocytes # 0.9 10*3/uL (1.4-4.0); Lymphocytes % 6.3 % (21.2-54.2); Mean Corpuscular HGB Conc 31.3 GM/DL (32-36); Mean Corpuscular Volume 98.5 FL (87-102); Mean Platelet Volume 10.6 FL (9.6-12.0); Monocytes # 1.1 10*3/uL (0.11-0.8); Monocytes % 7.5 % (1.7-12.7); Neutrophils % 81.3 % (38.7-73.9); Platelet Count 242 T/CUMM (130-400); Red Blood Count 2.63 MC/CUMM (3.8-5.5); Red Cell Distribution Width 15.4 % (9.3-17.3); White Blood Count 14.71 T/CUMM (4-12)
[2022-11-26 05:17] LABS: Calcium 8.2 MG/DL (8.5-10.1); Osmolality,Calculated 293.8 MOS/KG (273-304); Potassium 4.6 MMOL/L (3.5-5.1)
[2022-11-26] MEDS: LEVOTHYROXINE 50 MCG TABLET PO SCH (05:44)
[2022-11-26] MEDS: ALBUTEROL/IPRATROPIUM 3 ML NEB RESP TX SCH ×3 (06:58→19:08)
[2022-11-26] MEDS: POLYETHYLENE GLYCOL POWDER 17 GM PACK PO SCH (09:08)
[2022-11-26] MEDS: TAMSULOSIN 0.4 MG CAPSULE PO SCH (09:08)
[2022-11-26] MEDS: FOLIC ACID 1 MG TABLET PO SCH (09:08)
[2022-11-26] MEDS: CHOLECALCIFEROL 5,000 UNIT TABLET PO SCH (09:09)
[2022-11-26] MEDS: carvediloL 12.5 MG TABLET PO SCH ×2 (09:09→16:55)
[2022-11-26] MEDS: SEVELAMER CARBONATE 800 MG TABLET PO SCH ×3 (09:09→20:14)
[2022-11-26] MEDS: FERROUS SULFATE 325 MG TABLET PO SCH ×2 (09:09→20:14)
[2022-11-26] MEDS: OMEPRAZOLE ODT 20 MG TABLET PER TUBE SCH (09:09)
[2022-11-26] MEDS: MULTIVITAMIN (BEROCCA) TABLET PO SCH (09:09)
[2022-11-26] MEDS: CALCIUM (CARBONATE) 500 MG TABLET PO SCH (09:16)
[2022-11-26] MEDS: SCOPOLAMINE 1.5 MG PATCH TRANSDERM SCH (09:19)
[2022-11-26] MEDS ORDERED: HEPARIN 5,000 UNIT/1 ML VIAL SUBCUT SCH (11:00)
[2022-11-26] MEDS: ATORVASTATIN 10 MG TABLET PO SCH (20:14)
[2022-11-27] MEDS: ALBUTEROL/IPRATROPIUM 3 ML NEB RESP TX SCH ×4 (00:08→19:25)
[2022-11-27 03:54] LABS: Arterial Base Excess iSTAT 1 MMOL/L (-2.5-2.5); Arterial Bicarbonate iSTAT 26.4 MMOL/L (20-26); Arterial O2 Saturation iSTAT 91 % (95-100); Arterial PCO2 iSTAT 48 MM HG (35-48); Arterial PO2 iSTAT 64 MM HG (80-95); Arterial Total CO2 iSTAT 28 MMO/L (23-27); Arterial pH iSTAT 7.353 (7.35-7.45)
[2022-11-27 04:11] LABS: Basophils # 0.1 10*3/uL (0.0-0.2); Basophils % 0.4 % (0.0-0.8); Eosinophils # 0.4 10*3/uL (0.0-0.87); Eosinophils % 3.3 % (0.00-10.9); Hematocrit 26.2 VOL% (42.0-52.0); Hemoglobin 8.1 GM/DL (14.0-18.0); Immature Granulocytes % 0.5 %; Immature Granulocytes Absolute 0.06 #; Mean Corpuscular HGB Conc 30.9 GM/DL (32-36); Mean Corpuscular Volume 99.6 FL (87-102); Mean Platelet Volume 10.5 FL (9.6-12.0); Monocytes % 8.1 % (1.7-12.7); Neutrophils % 79.7 % (38.7-73.9); Platelet Count 224 T/CUMM (130-400); Red Blood Count 2.63 MC/CUMM (3.8-5.5); Red Cell Distribution Width 15.7 % (9.3-17.3); White Blood Count 12.28 T/CUMM (4-12)
[2022-11-27 04:23] LABS: Albumin 2.3 G/DL (3.4-5.0); Bilirubin,Total 0.5 MG/DL (0.20-1.00); Calcium 8.7 MG/DL (8.5-10.1); Osmolality,Calculated 285.8 MOS/KG (273-304); Potassium 4.8 MMOL/L (3.5-5.1); Total Protein 7.2 G/DL (6.4-8.2)
[2022-11-27] MEDS: INSULIN LISPRO 100 UNIT/ML SUBCUT SCH ×3 (05:58→17:40)
[2022-11-27] MEDS: LEVOTHYROXINE 50 MCG TABLET PO SCH (06:00)
[2022-11-27] MEDS: CHOLECALCIFEROL 5,000 UNIT TABLET PO SCH (08:05)
[2022-11-27] MEDS: TAMSULOSIN 0.4 MG CAPSULE PO SCH (08:05)
[2022-11-27] MEDS: MULTIVITAMIN (BEROCCA) TABLET PO SCH (08:05)
[2022-11-27] MEDS: carvediloL 12.5 MG TABLET PO SCH ×2 (08:06→17:18)
[2022-11-27] MEDS: OMEPRAZOLE ODT 20 MG TABLET PER TUBE SCH (08:06)
[2022-11-27] MEDS: FERROUS SULFATE 325 MG TABLET PO SCH ×2 (08:06→20:48)
[2022-11-27] MEDS: FOLIC ACID 1 MG TABLET PO SCH (08:06)
[2022-11-27] MEDS: POLYETHYLENE GLYCOL POWDER 17 GM PACK PO SCH (08:07)
[2022-11-27] MEDS: DORNASE ALFA 2.5 MG/2.5 ML VIAL RESP TX SCH ×2 (09:21→19:33)
[2022-11-27 10:54] LABS: Arterial Base Excess iSTAT 0 MMOL/L (-2.5-2.5); Arterial Bicarbonate iSTAT 26.1 MMOL/L (20-26); Arterial O2 Saturation iSTAT 91 % (95-100); Arterial PCO2 iSTAT 49 MM HG (35-48); Arterial PO2 iSTAT 65 MM HG (80-95); Arterial Total CO2 iSTAT 28 MMO/L (23-27); Arterial pH iSTAT 7.333 (7.35-7.45)
[2022-11-27] MEDS ORDERED: CEFEPIME 1,000 MG VIAL IM SCH (11:00)
[2022-11-27] MEDS ORDERED: SODIUM CHLORIDE 0.9% 100 ML IV ONE (11:19)
[2022-11-27] MEDS: CEFEPIME 1,000 MG in SODIUM CHLORIDE 0.9% 100 ML IV SCH ×2 (11:24→23:42)
[2022-11-27] MEDS ORDERED: CEFEPIME 1,000 MG in SODIUM CHLORIDE 0.9% 100 ML IV SCH (11:30)
[2022-11-27] MEDS: SEVELAMER CARBONATE 800 MG TABLET PO SCH ×2 (12:25→17:18)
[2022-11-27] MEDS: ATORVASTATIN 10 MG TABLET PO SCH (20:48)
[2022-11-28] MEDS: ALBUTEROL/IPRATROPIUM 3 ML NEB RESP TX SCH ×4 (00:04→19:30)
[2022-11-28 03:44] LABS: Arterial Base Excess iSTAT -2 MMOL/L (-2.5-2.5); Arterial Bicarbonate iSTAT 23.9 MMOL/L (20-26); Arterial O2 Saturation iSTAT 96 % (95-100); Arterial PCO2 iSTAT 46 MM HG (35-48); Arterial PO2 iSTAT 89 MM HG (80-95); Arterial Total CO2 iSTAT 25 MMO/L (23-27); Arterial pH iSTAT 7.328 (7.35-7.45)
[2022-11-28 03:47] LABS: Basophils # 0.1 10*3/uL (0.0-0.2); Basophils % 0.4 % (0.0-0.8); Eosinophils # 0.5 10*3/uL (0.0-0.87); Eosinophils % 3.6 % (0.00-10.9); Hematocrit 26.3 VOL% (42.0-52.0); Hemoglobin 8.3 GM/DL (14.0-18.0); Immature Granulocytes % 0.4 %; Immature Granulocytes Absolute 0.06 #; Lymphocytes # 0.8 10*3/uL (1.4-4.0); Lymphocytes % 6.2 % (21.2-54.2); Mean Corpuscular HGB Conc 31.6 GM/DL (32-36); Mean Corpuscular Volume 99.6 FL (87-102); Mean Platelet Volume 10.5 FL (9.6-12.0); Monocytes % 7.4 % (1.7-12.7); Platelet Count 231 T/CUMM (130-400); Red Blood Count 2.64 MC/CUMM (3.8-5.5); Red Cell Distribution Width 15.9 % (9.3-17.3); White Blood Count 13.46 T/CUMM (4-12)
[2022-11-28 03:57] LABS: Calcium 8.6 MG/DL (8.5-10.1); Osmolality,Calculated 287.2 MOS/KG (273-304); Potassium 5.3 MMOL/L (3.5-5.1)
[2022-11-28] MEDS: INSULIN LISPRO 100 UNIT/ML SUBCUT SCH ×5 (06:09→23:55)
[2022-11-28] MEDS: LEVOTHYROXINE 50 MCG TABLET PO SCH (06:12)
[2022-11-28] MEDS: DORNASE ALFA 2.5 MG/2.5 ML VIAL RESP TX SCH ×2 (08:05→19:37)
[2022-11-28 08:12] LABS: Arterial Base Excess iSTAT -1 MMOL/L (-2.5-2.5); Arterial Bicarbonate iSTAT 25.3 MMOL/L (20-26); Arterial O2 Saturation iSTAT 99 % (95-100); Arterial PCO2 iSTAT 51 MM HG (35-48); Arterial PO2 iSTAT 185 MM HG (80-95); Arterial Total CO2 iSTAT 27 MMO/L (23-27); Arterial pH iSTAT 7.305 (7.35-7.45)
[2022-11-28] MEDS ORDERED: MIDAZOLAM 2 MG/2 ML VIAL ONE (08:16)
[2022-11-28] MEDS: POLYETHYLENE GLYCOL POWDER 17 GM PACK PO SCH (08:27)
[2022-11-28] MEDS: SEVELAMER CARBONATE 800 MG TABLET PO SCH ×3 (08:27→16:29)
[2022-11-28] MEDS: FOLIC ACID 1 MG TABLET PO SCH (08:28)
[2022-11-28] MEDS: CHOLECALCIFEROL 5,000 UNIT TABLET PO SCH (08:28)
[2022-11-28] MEDS: OMEPRAZOLE ODT 20 MG TABLET PER TUBE SCH (08:28)
[2022-11-28] MEDS: carvediloL 12.5 MG TABLET PO SCH ×2 (08:28→16:29)
[2022-11-28] MEDS: MULTIVITAMIN (BEROCCA) TABLET PO SCH (08:28)
[2022-11-28] MEDS: TAMSULOSIN 0.4 MG CAPSULE PO SCH (08:28)
[2022-11-28] MEDS: FERROUS SULFATE 325 MG TABLET PO SCH ×2 (08:28→21:08)
[2022-11-28 11:32] VITALS: BP 124/69
[2022-11-28] MEDS: CEFEPIME 1,000 MG in SODIUM CHLORIDE 0.9% 100 ML IV SCH ×2 (12:06→22:53)
[2022-11-28 13:08] LABS: Arterial Base Excess iSTAT 2 MMOL/L (-2.5-2.5); Arterial Bicarbonate iSTAT 27.3 MMOL/L (20-26); Arterial O2 Saturation iSTAT 96 % (95-100); Arterial PCO2 iSTAT 48 MM HG (35-48); Arterial PO2 iSTAT 84 MM HG (80-95); Arterial Total CO2 iSTAT 29 MMO/L (23-27); Arterial pH iSTAT 7.363 (7.35-7.45)
[2022-11-28] MEDS: ATORVASTATIN 10 MG TABLET PO SCH (21:08)
[2022-11-29] MEDS: ALBUTEROL/IPRATROPIUM 3 ML NEB RESP TX SCH ×6 (01:00→23:02)
[2022-11-29 04:17] LABS: Basophils # 0.1 10*3/uL (0.0-0.2); Basophils % 0.5 % (0.0-0.8); Eosinophils # 0.4 10*3/uL (0.0-0.87); Eosinophils % 3.3 % (0.00-10.9); Hematocrit 26.5 VOL% (42.0-52.0); Hemoglobin 8.3 GM/DL (14.0-18.0); Immature Granulocytes % 0.5 %; Immature Granulocytes Absolute 0.06 #; Lymphocytes # 0.9 10*3/uL (1.4-4.0); Lymphocytes % 8.3 % (21.2-54.2); Mean Corpuscular HGB Conc 31.3 GM/DL (32-36); Mean Corpuscular Volume 99.6 FL (87-102); Mean Platelet Volume 10.6 FL (9.6-12.0); Monocytes # 0.9 10*3/uL (0.11-0.8); Monocytes % 8.2 % (1.7-12.7); Neutrophils % 79.2 % (38.7-73.9); Platelet Count 242 T/CUMM (130-400); Red Blood Count 2.66 MC/CUMM (3.8-5.5); Red Cell Distribution Width 16.2 % (9.3-17.3)
[2022-11-29 04:30] LABS: Calcium 8.7 MG/DL (8.5-10.1); Osmolality,Calculated 286.8 MOS/KG (273-304); Potassium 4.7 MMOL/L (3.5-5.1)
[2022-11-29] MEDS: INSULIN LISPRO 100 UNIT/ML SUBCUT SCH ×3 (05:24→18:01)
[2022-11-29] MEDS: LEVOTHYROXINE 50 MCG TABLET PO SCH (05:31)
[2022-11-29] MEDS: DORNASE ALFA 2.5 MG/2.5 ML VIAL RESP TX SCH ×2 (07:15→19:14)
[2022-11-29] MEDS: carvediloL 12.5 MG TABLET PO SCH ×2 (10:54→17:26)
[2022-11-29] MEDS: MULTIVITAMIN (BEROCCA) TABLET PO SCH (10:54)
[2022-11-29] MEDS: TAMSULOSIN 0.4 MG CAPSULE PO SCH (10:54)
[2022-11-29] MEDS: SEVELAMER CARBONATE 800 MG TABLET PO SCH ×3 (10:54→17:27)
[2022-11-29] MEDS: CHOLECALCIFEROL 5,000 UNIT TABLET PO SCH (10:54)
[2022-11-29] MEDS: FOLIC ACID 1 MG TABLET PO SCH (10:54)
[2022-11-29] MEDS: FERROUS SULFATE 325 MG TABLET PO SCH ×2 (10:55→20:01)
[2022-11-29] MEDS: OMEPRAZOLE ODT 20 MG TABLET PER TUBE SCH (10:55)
[2022-11-29] MEDS: POLYETHYLENE GLYCOL POWDER 17 GM PACK PO SCH (10:55)
[2022-11-29] MEDS: CEFEPIME 1,000 MG in SODIUM CHLORIDE 0.9% 100 ML IV SCH ×2 (10:55→22:32)
[2022-11-29] MEDS: ATORVASTATIN 10 MG TABLET PO SCH (20:00)
[2022-11-30] MEDS: INSULIN LISPRO 100 UNIT/ML SUBCUT SCH ×4 (00:10→18:50)
[2022-11-30] MEDS: ALBUTEROL/IPRATROPIUM 3 ML NEB RESP TX SCH ×6 (03:17→22:21)
[2022-11-30] MEDS: LEVOTHYROXINE 50 MCG TABLET PO SCH (06:10)
[2022-11-30] MEDS: DORNASE ALFA 2.5 MG/2.5 ML VIAL RESP TX SCH ×2 (06:58→19:21)
[2022-11-30] MEDS: carvediloL 12.5 MG TABLET PO SCH ×2 (09:06→16:55)
[2022-11-30] MEDS: MULTIVITAMIN (BEROCCA) TABLET PO SCH (09:06)
[2022-11-30] MEDS: SEVELAMER CARBONATE 800 MG TABLET PO SCH ×3 (09:06→16:55)
[2022-11-30] MEDS: OMEPRAZOLE ODT 20 MG TABLET PER TUBE SCH (09:06)
[2022-11-30] MEDS: FOLIC ACID 1 MG TABLET PO SCH (09:06)
[2022-11-30] MEDS: FERROUS SULFATE 325 MG TABLET PO SCH ×2 (09:07→21:10)
[2022-11-30] MEDS: CHOLECALCIFEROL 5,000 UNIT TABLET PO SCH (09:07)
[2022-11-30] MEDS: TAMSULOSIN 0.4 MG CAPSULE PO SCH (09:07)
[2022-11-30] MEDS: POLYETHYLENE GLYCOL POWDER 17 GM PACK PO SCH (09:15)
[2022-11-30] MEDS: CEFEPIME 1,000 MG in SODIUM CHLORIDE 0.9% 100 ML IV SCH ×2 (12:11→22:30)
[2022-11-30] MEDS: ATORVASTATIN 10 MG TABLET PO SCH (21:10)
[2022-12-01] MEDS: INSULIN LISPRO 100 UNIT/ML SUBCUT SCH ×4 (00:05→18:08)
[2022-12-01] MEDS: ALBUTEROL/IPRATROPIUM 3 ML NEB RESP TX SCH ×6 (03:11→22:35)
[2022-12-01 04:36] LABS: Arterial Base Excess iSTAT 2 MMOL/L (-2.5-2.5); Arterial Bicarbonate iSTAT 29.1 MMOL/L (20-26); Arterial O2 Saturation iSTAT 93 % (95-100); Arterial PCO2 iSTAT 58 MM HG (35-48); Arterial PO2 iSTAT 76 MM HG (80-95); Arterial Total CO2 iSTAT 31 MMO/L (23-27); Arterial pH iSTAT 7.307 (7.35-7.45)
[2022-12-01] MEDS: LEVOTHYROXINE 50 MCG TABLET PO SCH (05:45)
[2022-12-01] MEDS: DORNASE ALFA 2.5 MG/2.5 ML VIAL RESP TX SCH ×2 (07:31→19:08)
[2022-12-01 08:01] LABS: Basophils # 0.1 10*3/uL (0.0-0.2); Basophils % 0.7 % (0.0-0.8); Eosinophils # 0.6 10*3/uL (0.0-0.87); Eosinophils % 5.7 % (0.00-10.9); Hematocrit 25.7 VOL% (42.0-52.0); Hemoglobin 7.8 GM/DL (14.0-18.0); Immature Granulocytes % 1.6 %; Immature Granulocytes Absolute 0.16 #; Lymphocytes # 1.2 10*3/uL (1.4-4.0); Lymphocytes % 12.6 % (21.2-54.2); Mean Corpuscular HGB Conc 30.4 GM/DL (32-36); Mean Platelet Volume 10.9 FL (9.6-12.0); Monocytes # 1.1 10*3/uL (0.11-0.8); Monocytes % 11.6 % (1.7-12.7); Neutrophils % 67.8 % (38.7-73.9); Platelet Count 254 T/CUMM (130-400); Red Blood Count 2.52 MC/CUMM (3.8-5.5); Red Cell Distribution Width 16.5 % (9.3-17.3); White Blood Count 9.75 T/CUMM (4-12)
[2022-12-01 08:22] LABS: Calcium 8.5 MG/DL (8.5-10.1); Osmolality,Calculated 290.8 MOS/KG (273-304); Potassium 4.3 MMOL/L (3.5-5.1)
[2022-12-01] MEDS: carvediloL 12.5 MG TABLET PO SCH ×2 (08:47→16:51)
[2022-12-01] MEDS: SEVELAMER CARBONATE 800 MG TABLET PO SCH ×3 (08:48→16:51)
[2022-12-01] MEDS: FERROUS SULFATE 325 MG TABLET PO SCH ×2 (08:48→21:00)
[2022-12-01] MEDS: TAMSULOSIN 0.4 MG CAPSULE PO SCH (08:48)
[2022-12-01] MEDS: MULTIVITAMIN (BEROCCA) TABLET PO SCH (08:48)
[2022-12-01] MEDS: POLYETHYLENE GLYCOL POWDER 17 GM PACK PO SCH (08:49)
[2022-12-01] MEDS: OMEPRAZOLE ODT 20 MG TABLET PER TUBE SCH (08:49)
[2022-12-01] MEDS: FOLIC ACID 1 MG TABLET PO SCH (08:49)
[2022-12-01] MEDS: CHOLECALCIFEROL 5,000 UNIT TABLET PO SCH (08:49)
[2022-12-01] MEDS: MEROPENEM 500 MG in SODIUM CHLORIDE 0.9% 100 ML IV SCH (21:00)
[2022-12-01] MEDS: ATORVASTATIN 10 MG TABLET PO SCH (21:00)
[2022-12-02] MEDS: INSULIN LISPRO 100 UNIT/ML SUBCUT SCH ×4 (00:07→18:58)
[2022-12-02] MEDS: ALBUTEROL/IPRATROPIUM 3 ML NEB RESP TX SCH ×6 (03:40→23:29)
[2022-12-02 04:38] LABS: Arterial Base Excess iSTAT 2 MMOL/L (-2.5-2.5); Arterial Bicarbonate iSTAT 27.3 MMOL/L (20-26); Arterial O2 Saturation iSTAT 96 % (95-100); Arterial PCO2 iSTAT 47 MM HG (35-48); Arterial PO2 iSTAT 89 MM HG (80-95); Arterial Total CO2 iSTAT 29 MMO/L (23-27); Arterial pH iSTAT 7.374 (7.35-7.45)
[2022-12-02 04:46] LABS: Basophils # 0.1 10*3/uL (0.0-0.2); Basophils % 0.8 % (0.0-0.8); Eosinophils # 0.6 10*3/uL (0.0-0.87); Eosinophils % 5.9 % (0.00-10.9); Hematocrit 25.7 VOL% (42.0-52.0); Hemoglobin 7.7 GM/DL (14.0-18.0); Immature Granulocytes Absolute 0.19 #; Lymphocytes # 1.3 10*3/uL (1.4-4.0); Lymphocytes % 13.9 % (21.2-54.2); Mean Corpuscular Volume 102.4 FL (87-102); Mean Platelet Volume 10.5 FL (9.6-12.0); Monocytes # 1.1 10*3/uL (0.11-0.8); Monocytes % 11.5 % (1.7-12.7); Neutrophils % 65.9 % (38.7-73.9); Platelet Count 302 T/CUMM (130-400); Red Blood Count 2.51 MC/CUMM (3.8-5.5); Red Cell Distribution Width 16.6 % (9.3-17.3); White Blood Count 9.28 T/CUMM (4-12)
[2022-12-02 05:11] LABS: Calcium 8.5 MG/DL (8.5-10.1); Potassium 4.8 MMOL/L (3.5-5.1)
[2022-12-02 05:16] LABS: Phosphorous 3.7 MG/DL (2.5-4.9)
[2022-12-02] MEDS: LEVOTHYROXINE 50 MCG TABLET PO SCH (06:24)
[2022-12-02] MEDS: DORNASE ALFA 2.5 MG/2.5 ML VIAL RESP TX SCH ×2 (07:31→19:34)
[2022-12-02] MEDS: MULTIVITAMIN (BEROCCA) TABLET PO SCH (08:40)
[2022-12-02] MEDS: SEVELAMER CARBONATE 800 MG TABLET PO SCH ×3 (08:40→18:57)
[2022-12-02] MEDS: carvediloL 12.5 MG TABLET PO SCH ×2 (08:41→18:57)
[2022-12-02] MEDS: OMEPRAZOLE ODT 20 MG TABLET PER TUBE SCH (08:41)
[2022-12-02] MEDS: TAMSULOSIN 0.4 MG CAPSULE PO SCH (08:41)
[2022-12-02] MEDS: CHOLECALCIFEROL 5,000 UNIT TABLET PO SCH (08:41)
[2022-12-02] MEDS: FOLIC ACID 1 MG TABLET PO SCH (08:41)
[2022-12-02] MEDS: FERROUS SULFATE 325 MG TABLET PO SCH ×2 (08:41→21:29)
[2022-12-02] MEDS: POLYETHYLENE GLYCOL POWDER 17 GM PACK PO SCH (08:42)
[2022-12-02] MEDS: MEROPENEM 500 MG in SODIUM CHLORIDE 0.9% 100 ML IV SCH ×2 (08:42→21:29)
[2022-12-02] MEDS: methylPREDNISolone SOD SUC 40 MG/1 ML VIAL IV SCH ×2 (10:37→18:57)
[2022-12-02] MEDS: ATORVASTATIN 10 MG TABLET PO SCH (21:29)
[2022-12-03] MEDS: INSULIN LISPRO 100 UNIT/ML SUBCUT SCH ×4 (01:14→17:53)
[2022-12-03] MEDS: methylPREDNISolone SOD SUC 40 MG/1 ML VIAL IV SCH ×3 (01:15→17:52)
[2022-12-03 03:03] LABS: ABG Base Excess -0.4 MMOL/L (-2.5-2.5); ABG HCO3 24.1 MMOL/L (20-26); ABG Oxygen Saturation 98.8 % (95-100); ABG PCO2 46.2 MM HG (35-48); ABG TCO2 23.3 MMOL/L (23-27)
[2022-12-03] MEDS: ALBUTEROL/IPRATROPIUM 3 ML NEB RESP TX SCH ×6 (03:07→22:04)
[2022-12-03 04:02] LABS: Basophils % 0.3 % (0.0-0.8); Hematocrit 28.2 VOL% (42.0-52.0); Hemoglobin 8.8 GM/DL (14.0-18.0); Immature Granulocytes % 2.6 %; Immature Granulocytes Absolute 0.28 #; Lymphocytes # 0.7 10*3/uL (1.4-4.0); Lymphocytes % 6.4 % (21.2-54.2); Mean Corpuscular HGB Conc 31.2 GM/DL (32-36); Mean Corpuscular Volume 100.4 FL (87-102); Mean Platelet Volume 10.3 FL (9.6-12.0); Monocytes # 0.4 10*3/uL (0.11-0.8); Monocytes % 3.8 % (1.7-12.7); Neutrophils % 86.9 % (38.7-73.9); Platelet Count 369 T/CUMM (130-400); Red Blood Count 2.81 MC/CUMM (3.8-5.5); Red Cell Distribution Width 16.4 % (9.3-17.3); White Blood Count 10.61 T/CUMM (4-12)
[2022-12-03 04:19] LABS: Albumin 2.3 G/DL (3.4-5.0); Bilirubin,Total 0.5 MG/DL (0.20-1.00); Calcium 8.8 MG/DL (8.5-10.1); Osmolality,Calculated 299.2 MOS/KG (273-304); Potassium 5.7 MMOL/L (3.5-5.1); Total Protein 7.6 G/DL (6.4-8.2)
[2022-12-03] MEDS: LEVOTHYROXINE 50 MCG TABLET PO SCH (06:21)
[2022-12-03] MEDS: DORNASE ALFA 2.5 MG/2.5 ML VIAL RESP TX SCH ×2 (07:35→19:18)
[2022-12-03] MEDS: MEROPENEM 500 MG in SODIUM CHLORIDE 0.9% 100 ML IV SCH ×2 (09:18→21:18)
[2022-12-03] MEDS: FOLIC ACID 1 MG TABLET PO SCH (09:22)
[2022-12-03] MEDS: MULTIVITAMIN (BEROCCA) TABLET PO SCH (09:22)
[2022-12-03] MEDS: POLYETHYLENE GLYCOL POWDER 17 GM PACK PO SCH (09:22)
[2022-12-03] MEDS: OMEPRAZOLE ODT 20 MG TABLET PER TUBE SCH (09:22)
[2022-12-03] MEDS: TAMSULOSIN 0.4 MG CAPSULE PO SCH (09:22)
[2022-12-03] MEDS: FERROUS SULFATE 325 MG TABLET PO SCH ×2 (09:22→21:18)
[2022-12-03] MEDS: SEVELAMER CARBONATE 800 MG TABLET PO SCH ×3 (09:22→17:07)
[2022-12-03] MEDS: CHOLECALCIFEROL 5,000 UNIT TABLET PO SCH (09:22)
[2022-12-03] MEDS: carvediloL 12.5 MG TABLET PO SCH ×2 (09:33→17:06)
[2022-12-03] MEDS: ATORVASTATIN 10 MG TABLET PO SCH (21:18)
[2022-12-04] MEDS: INSULIN LISPRO 100 UNIT/ML SUBCUT SCH ×5 (00:58→23:23)
[2022-12-04] MEDS: methylPREDNISolone SOD SUC 40 MG/1 ML VIAL IV SCH ×3 (01:00→17:19)
[2022-12-04] MEDS: ALBUTEROL/IPRATROPIUM 3 ML NEB RESP TX SCH ×6 (02:06→22:44)
[2022-12-04 03:48] LABS: Basophils % 0.2 % (0.0-0.8); Hematocrit 29.9 VOL% (42.0-52.0); Hemoglobin 9.3 GM/DL (14.0-18.0); Immature Granulocytes % 3.9 %; Immature Granulocytes Absolute 0.44 #; Lymphocytes # 0.8 10*3/uL (1.4-4.0); Lymphocytes % 7.3 % (21.2-54.2); Mean Corpuscular HGB Conc 31.1 GM/DL (32-36); Mean Corpuscular Volume 99.3 FL (87-102); Mean Platelet Volume 10.5 FL (9.6-12.0); Monocytes # 0.8 10*3/uL (0.11-0.8); Monocytes % 6.8 % (1.7-12.7); Neutrophils % 81.8 % (38.7-73.9); Platelet Count 457 T/CUMM (130-400); Red Blood Count 3.01 MC/CUMM (3.8-5.5); Red Cell Distribution Width 17.1 % (9.3-17.3); White Blood Count 11.25 T/CUMM (4-12)
[2022-12-04 04:00] LABS: Arterial Base Excess iSTAT 1 MMOL/L (-2.5-2.5); Arterial Bicarbonate iSTAT 26.2 MMOL/L (20-26); Arterial O2 Saturation iSTAT 99 % (95-100); Arterial PCO2 iSTAT 44 MM HG (35-48); Arterial PO2 iSTAT 126 MM HG (80-95); Arterial Total CO2 iSTAT 28 MMO/L (23-27); Arterial pH iSTAT 7.381 (7.35-7.45)
[2022-12-04 04:03] LABS: Calcium 9.1 MG/DL (8.5-10.1); Potassium 5.1 MMOL/L (3.5-5.1)
[2022-12-04] MEDS: LEVOTHYROXINE 50 MCG TABLET PO SCH (06:22)
[2022-12-04] MEDS: DORNASE ALFA 2.5 MG/2.5 ML VIAL RESP TX SCH ×2 (08:00→19:31)
[2022-12-04] MEDS: SEVELAMER CARBONATE 800 MG TABLET PO SCH ×3 (09:05→17:19)
[2022-12-04] MEDS: carvediloL 12.5 MG TABLET PO SCH ×2 (09:05→17:19)
[2022-12-04] MEDS: CHOLECALCIFEROL 5,000 UNIT TABLET PO SCH (09:06)
[2022-12-04] MEDS: FOLIC ACID 1 MG TABLET PO SCH (09:06)
[2022-12-04] MEDS: TAMSULOSIN 0.4 MG CAPSULE PO SCH (09:06)
[2022-12-04] MEDS: MULTIVITAMIN (BEROCCA) TABLET PO SCH (09:06)
[2022-12-04] MEDS: OMEPRAZOLE ODT 20 MG TABLET PER TUBE SCH (09:06)
[2022-12-04] MEDS: POLYETHYLENE GLYCOL POWDER 17 GM PACK PO SCH (09:06)
[2022-12-04] MEDS: FERROUS SULFATE 325 MG TABLET PO SCH ×2 (09:06→20:25)
[2022-12-04] MEDS: MEROPENEM 500 MG in SODIUM CHLORIDE 0.9% 100 ML IV SCH ×2 (09:18→20:26)
[2022-12-04] MEDS: ATORVASTATIN 10 MG TABLET PO SCH (20:25)
[2022-12-05] MEDS: methylPREDNISolone SOD SUC 40 MG/1 ML VIAL IV SCH ×3 (00:14→17:11)
[2022-12-05] MEDS: ALBUTEROL/IPRATROPIUM 3 ML NEB RESP TX SCH ×5 (03:18→17:16)
[2022-12-05 04:40] LABS: Basophils % 0.1 % (0.0-0.8); Hematocrit 30.3 VOL% (42.0-52.0); Hemoglobin 9.6 GM/DL (14.0-18.0); Immature Granulocytes % 2.8 %; Immature Granulocytes Absolute 0.31 #; Lymphocytes # 0.7 10*3/uL (1.4-4.0); Lymphocytes % 6.1 % (21.2-54.2); Mean Corpuscular HGB Conc 31.7 GM/DL (32-36); Mean Corpuscular Volume 99.3 FL (87-102); Mean Platelet Volume 10.6 FL (9.6-12.0); Monocytes # 0.6 10*3/uL (0.11-0.8); Monocytes % 5.6 % (1.7-12.7); Neutrophils % 85.4 % (38.7-73.9); Platelet Count 534 T/CUMM (130-400); Red Blood Count 3.05 MC/CUMM (3.8-5.5); Red Cell Distribution Width 16.5 % (9.3-17.3); White Blood Count 10.99 T/CUMM (4-12)
[2022-12-05 04:54] LABS: Calcium 8.8 MG/DL (8.5-10.1); Potassium 5.8 MMOL/L (3.5-5.1)
[2022-12-05] MEDS: LEVOTHYROXINE 50 MCG TABLET PO SCH (05:49)
[2022-12-05] MEDS: INSULIN LISPRO 100 UNIT/ML SUBCUT SCH ×2 (05:49→11:52)
[2022-12-05] MEDS ORDERED: FAMOTIDINE 20 MG/2 ML VIAL IV ONE (07:00)
[2022-12-05] MEDS: DORNASE ALFA 2.5 MG/2.5 ML VIAL RESP TX SCH (07:20)
[2022-12-05] MEDS: carvediloL 12.5 MG TABLET PO SCH ×2 (08:46→17:10)
[2022-12-05] MEDS: MULTIVITAMIN (BEROCCA) TABLET PO SCH (08:46)
[2022-12-05] MEDS: CHOLECALCIFEROL 5,000 UNIT TABLET PO SCH (08:47)
[2022-12-05] MEDS: OMEPRAZOLE ODT 20 MG TABLET PER TUBE SCH (08:47)
[2022-12-05] MEDS: FERROUS SULFATE 325 MG TABLET PO SCH (08:47)
[2022-12-05] MEDS: FOLIC ACID 1 MG TABLET PO SCH (08:47)
[2022-12-05] MEDS: TAMSULOSIN 0.4 MG CAPSULE PO SCH (08:47)
[2022-12-05] MEDS: POLYETHYLENE GLYCOL POWDER 17 GM PACK PO SCH (08:47)
[2022-12-05] MEDS: SEVELAMER CARBONATE 800 MG TABLET PO SCH ×3 (08:47→17:11)
[2022-12-05] MEDS ORDERED: MIDAZOLAM 2 MG/2 ML VIAL ONE (08:52)
[2022-12-05] MEDS ORDERED: KETAMINE 500 MG/10 ML VIAL ONE (08:52)
[2022-12-05] MEDS ORDERED: HEPARIN 5,000 UNIT/1 ML VIAL ONE (08:56)
[2022-12-05] MEDS ORDERED: BUPIVACAINE MPF 0.25% 10 ML VIAL ONE (08:56)
[2022-12-05] MEDS ORDERED: LIDOCAINE 1%/EPI INJ 20 ML VIAL ONE (08:56)
[2022-12-05] MEDS ORDERED: ceFAZolin 1,000 MG VIAL ONE (09:42)
[2022-12-05] MEDS: MEROPENEM 500 MG in SODIUM CHLORIDE 0.9% 100 ML IV SCH (10:41)
== END 2022-12-05 17:33 | DRG 280 ==
LOC: EDUNIT# → EDBD → N.ED 18:11 → SUATTDRO 20:02 → N.EDINP 20:02 → N.TELES 22:31 → N.CC 11-08 18:47
PROVIDERS: ADMIT Internal Medicine Geriatric Medicine; ATTEND Internal Medicine